=== PATIENT | female | born 1935 | race Caucasian/White ===

== ENCOUNTER → 2018-09-30 | Outpatient (CLI) | payer MEDICARE ==
[~2018-09-30] MED LIST: ASPI-906 PO; CARV3.12 PO; EST45C VG; GLIP10TA23 PO; LOSA1TAB20 PO; MAGN250T7 PO; NTR.4SL SL; OMEG1CAP24 PO; PNT40TEC PO; POTA20TA15 PO; ROSU40TA PO; SAXA5TAB PO; UBID1CAP51 PO
--- NOTE | 2018-09-30 11:32 | Diagnostic Imaging Report ---
CLINICAL INDICATION: Patient had dizzy spell on Wednesday when she could not walk and also having pains throughout her head. EXAMINATION: Axial CT scan of the brain performed without IV contrast. COMPARISON: None. FINDINGS: There is no evidence of acute cerebral infarct, intracranial hemorrhage, or gross mass effect. The brain parenchymal volume appears appropriate for patient's age. There are mild areas of low-attenuation white matter changes seen throughout both cerebral hemispheres. There is normal hernandez-white matter distinction. There is no significant midline shift or herniation. There is no evidence of hydrocephalus. The basal cisterns are unremarkable. The skull, extracranial soft tissue, and orbits are unremarkable. There is mild mucosal thickening involving the ethmoid sinus. Temporal bones show no significant abnormality. IMPRESSION: 1: Mild age-related brain parenchymal changes with no evidence of acute intracranial process. 2: There is mild ethmoid sinus disease. Dictated by: Dictated on workstation # [id number]
== END ==
LOC: RAD 10:38
PROVIDERS: ATTEND Family Medicine
DX: J32.2 Chronic ethmoidal sinusitis (principal); R42 Dizziness and giddiness
CPT/HCPCS: 70450

== ENCOUNTER 2018-12-23 05:39 | Outpatient (CLI) | payer MEDICARE ==
[~2018-12-23] VITALS: Ht 149.9 cm; Wt 88.0 kg
[2018-12-23] MEDS ORDERED: GLIP10TA13 PO (11:42)
[2018-12-23] MEDS ORDERED: OMEG-77 PO (11:42)
[2018-12-23] MEDS ORDERED: METO-370 PO (11:42)
[2018-12-23] MEDS ORDERED: LOSA50TA63 PO (11:42)
[2018-12-23] MEDS ORDERED: POTA10CA43 PO (11:42)
[2018-12-23] MEDS ORDERED: APIX2.5T PO (11:42)
[2018-12-23] MEDS ORDERED: PANT40TA3 PO (11:42)
[2018-12-23] MEDS ORDERED: ROSU40TA22 PO (11:42)
[2018-12-23] MEDS ORDERED: ASPI-999 PO (11:42)
== END 2018-12-23 11:48 ==
LOC: PREOP 05:39
PROVIDERS: ATTEND Surgery
DX: Z01.818 Encounter for other preprocedural examination (principal)

== ENCOUNTER 2018-12-27 10:13 | Day surgery (SDC) | payer MEDICARE ==
[~2018-12-27] VITALS: Ht 149.9 cm; Wt 88.0 kg
[~2018-12-27 10:13] MED LIST changes: +APIX2.5T PO; +ASPI-999 PO; +GLIP10TA13 PO; +LOSA50TA63 PO; +METO-370 PO; +OMEG-77 PO; +PANT40TA3 PO; +POTA10CA43 PO; +ROSU40TA22 PO
[2018-12-27] MEDS ORDERED: LACTATED RINGERS 1,000 ML IV ONE (10:21)
[2018-12-27] MEDS ORDERED: LACTATED RINGERS 1,000 ML IV STA (10:22)
[2018-12-27] MEDS ORDERED: proPOfol 200 MG/20 ML (DIPRIVAN) VIAL IV ONE (10:49)
[2018-12-27] MEDS ORDERED: MIDAZOLAM 2 MG/2 ML (VERSED) VIAL ONE (10:50)
[2018-12-27 11:09] VITALS: BP 127/69
--- NOTE | 2018-12-27 11:25 | Progress Note-Post Operative ---
Post-Operative Progess Note Surgeon (s)/Compressor Station Chief Engineer (s) Surgeon TERE CLARK DO Compressor Station Chief Engineer: na Pre-Operative Diagnosis hx polyps Post-Operative Diagnosis diverticulosis, descending colon polyp Procedure & Operative Findings Date of Procedure 12/27/18 Procedure Performed/Findings colonoscopy c hot bx polypectomy Anesthesia Type per mda Estimated Blood Loss Estimated blood loss (mL): none Specimens/Packing Specimens Removed colon polyp TERE CLARK DO Dec 27, 2018 11:25
--- NOTE | 2018-12-27 11:27 | Discharge Inst-Simple/Standard ---
Discharge Inst-Standard Patient Instructions/Follow Up Plan of Care/Instructions/FU: 2 weeks hedy restart Eliquis in 2 days. Activity as Tolerated: Yes Discharge Diet: Regular Diet TERE CLARK DO Dec 27, 2018 11:27
[2018-12-27 11:40] VITALS: BP 114/58
[2018-12-27 12:10] VITALS: BP 120/57
[2018-12-27 12:25] VITALS: BP 120/57
--- NOTE | 2018-12-27 14:22 | Anesthesia-General Post-Op ---
MAC Patient Condition Mental Status/LOC: Same as Preop Cardiovascular: Satisfactory Nausea/Vomiting: Absent Respiratory: Satisfactory Pain: Controlled Complications: Absent Post Op Complications Complications None Follow Up Care/Instructions Patient Instructions None needed. Anesthesiology Discharge Order Discharge Order Patient is doing well, no complaints, stable vital signs, no apparent adverse anesthesia problems. No complications reported per nursing. MALLORIE BLANC CRNA Dec 27, 2018 14:22
--- NOTE | 2018-12-27 19:17 | OPERATIVE REPORT ---
DATE OF SERVICE: 12/27/2018 PREOPERATIVE DIAGNOSIS: History of polyps. POSTOPERATIVE DIAGNOSIS: Diverticulosis and descending colon polyp. PROCEDURE: Colonoscopy with hot biopsy polypectomy. SURGEON: Tere Gordillo DO ANESTHESIA: Per MDA. ESTIMATED BLOOD LOSS: None. COMPLICATIONS: None. INDICATIONS: The patient is an 83-year-old female with history of colon polyps. She understands the risks and benefits of procedures and willing to proceed with procedure. Consent was signed in the chart. PROCEDURE IN DETAIL: The patient was taken to the endoscopy suite, placed in left lateral recumbent position. Timeout was performed. Digital rectal exam was performed. There were no palpable polyps, masses or ulcerations. The scope was inserted in the rectum and advanced all the way to the cecum with minimal difficulty. Prep was adequate. Scope was then slowly retracted back. There were no polyps, masses or ulcerations in the cecum, ascending or transverse colon. In the descending colon, there was a small polyp appearing flat lesion, which hot biopsy polypectomy was performed. Scope was then slowly retracted back. There were no polyps, masses or ulceration of the sigmoid colon. Throughout the entire colon, there was a small amount of diverticulosis present. Once in the rectum, scope was retroflexed noting no other pathology. Scope was returned to its normal position, slowly withdrawn until completely removed. The patient tolerated the procedure well without any complications. She was taken to the recovery room in stable condition. RECOMMENDATIONS: The patient will follow up in the office in two weeks to discuss pathology results. If she has any issues, she should be seen at that time. Otherwise, due to age, I do think she needs to have any further colonoscopies unless she has issues. Job ID: [id number] DocumentID: [id number] Dictated Date: 12/27/2018 11:30:04 Silica Dry Press Helper Date: 12/27/2018 19:17:05 Dictated By: TERE GORDILLO DO
== END 2018-12-27 12:25 | disposition home or self-care (01) ==
LOC: ENDO 10:13
PROVIDERS: ATTEND Surgery
DX: Z12.11 Encounter for screening for malignant neoplasm of colon (principal); K63.5 Polyp of colon; K57.30 Diverticulosis of large intestine without perforation or abscess without bleeding; I25.10 Atherosclerotic heart disease of native coronary artery without angina pectoris; I10 Essential (primary) hypertension; E11.9 Type 2 diabetes mellitus without complications; K21.9 Gastro-esophageal reflux disease without esophagitis; Z86.718 Personal history of other venous thrombosis and embolism; Z79.01 Long term (current) use of anticoagulants; Z79.82 Long term (current) use of aspirin; Z79.84 Long term (current) use of oral hypoglycemic drugs; Z79.899 Other long term (current) drug therapy
CPT/HCPCS: 82962; 88305

== ENCOUNTER 2019-02-13 05:42 | Outpatient (CLI) | payer MEDICARE ==
[~2019-02-13] VITALS: Ht 149.9 cm; Wt 82.1 kg
[2019-02-13] MEDS ORDERED: ROSU20TA31 PO (13:30)
[2019-02-13] MEDS ORDERED: CYAN500T2 PO (13:30)
[2019-02-13] MEDS ORDERED: [UNRECOGNIZED DRUG - CODE] PO (13:33)
[2019-02-13] MEDS ORDERED: DOCU100T7 PO (13:34)
== END 2019-02-13 13:47 | disposition home or self-care (01) ==
LOC: PREOP 05:42
PROVIDERS: ATTEND Otolaryngology Otolaryngology/Facial Plastic Surgery
DX: Z01.818 Encounter for other preprocedural examination (principal)

== ENCOUNTER → 2019-02-23 | Outpatient (CLI) | payer MEDICARE ==
[~2019-02-23] MED LIST changes: +CEPH-507 PO; +CYAN500T2 PO; +DOCU100T7 PO; +HYDR-3812 PO; +ROSU20TA31 PO; +[UNRECOGNIZED DRUG - CODE] PO
== END ==
LOC: CARD 10:44
PROVIDERS: ATTEND Internal Medicine Cardiovascular Disease
DX: I25.10 Atherosclerotic heart disease of native coronary artery without angina pectoris (principal); E11.9 Type 2 diabetes mellitus without complications; I10 Essential (primary) hypertension; E78.2 Mixed hyperlipidemia; I48.0 Paroxysmal atrial fibrillation
CPT/HCPCS: 93306

== ENCOUNTER 2019-03-04 11:44 | Emergency (ER) | payer MEDICARE ==
[~2019-03-04] VITALS: Ht 149.9 cm; Wt 82.1 kg
[2019-03-04] MEDS ORDERED: TRIAMCINOLONE 0.1% CR (KENALOG) 15 GM TUBE ONE (12:50)
--- NOTE | 2019-03-04 12:54 | ED Integumentary General ---
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 Pt had sutures posterior right ear removed Wednesday in Dr office and later rash developed. Stats burning and itching. Pt states tried to be seen at [facility] yesterday and they could not examine a skin graft. Source: patient Exam Limitations: no limitations History of Present Illness Date Seen by Provider: Mar 04, 2019 Time Seen by Provider: 12:47 Initial Comments This 80-year-old white female presents with redness and itching to the forehead and posterior right neck where she has been applying a topical antibiotic and Neosporin to a graft site to her forehead from a skin graft taken from posterior to the right ear. This graft was done by Dr. Lorenzana in mid January. The patient healed well but subsequently developed redness and itching suggestive of an allergic reaction to the topicals. The patient denies a headache, photophobia, stiff neck, pain or vesicular rash. Allergies and Home Medications Allergies Coded Allergies: morphine (Verified Allergy, Intermediate, 02/13/19) povidone-iodine (Verified Allergy, Intermediate, 02/13/19) thiopental (Verified Allergy, Intermediate, 02/13/19) tramadol (Verified Allergy, Intermediate, 02/13/19) metoclopramide (Unverified Adverse Reaction, Unknown, 03/04/19) Uncoded Allergies: ADHESIVE TAPE-SILICONES (Adverse Reaction, Mild, rash, 03/04/19) BETADINE SURGI-PREP (Adverse Reaction, Mild, itching, 03/04/19) SULFA (Adverse Reaction, Mild, Hives, 03/04/19) Home Medications Cephalexin 500 Mg Capsule, 500 MG PO TID Prescribed by: CATALINA OATES on 02/16/19 0856 Cyanocobalamin (Vitamin B-12) 500 Mcg Tablet, 1,000 MCG PO DAILY, (Reported) Docusate Sodium 100 Mg Tablet, 200 MG PO HS, (Reported) Glipizide 10 Mg Tablet, 10 MG PO BID, (Reported) Hydrocodone/Acetaminophen 1 Each Tablet, 1 TAB PO Q4-6HR Prescribed by: CATALINA OATES on 02/16/19 0856 Losartan Potassium 50 Mg Tablet, 50 MG PO DAILY, (Reported) Metoprolol Succinate 50 Mg Tab.er.24h, 50 MG PO BID, (Reported) [place]-3 Fatty Acids/Fish Oil 1 Each Capsule, 1 EACH PO BID, (Reported) Pantoprazole Sodium 40 Mg Tablet.dr, 40 MG PO DAILY, (Reported) Potassium Chloride 10 Meq Capsule.er, 20 MEQ PO DAILY, (Reported) Rosuvastatin Calcium 20 Mg Tablet, 20 MG PO DAILY, (Reported) Trimipramine Maleate 100 Mg Capsule, 100 MG PO Q48H, (Reported) Patient Home Medication List Home Medication List Reviewed: Yes Review of Systems Review of Systems Constitutional: No chills, No fever EENTM: other (Reisch to forehead and neck posteriorly on the right); No hearing loss Respiratory: no symptoms reported Cardiovascular: no symptoms reported Gastrointestinal: no symptoms reported Genitourinary: no symptoms reported Musculoskeletal: no symptoms reported Skin: see HPI, other (coalescing erythematous rash to the right forehead and the right neck posteriorly) Psychiatric/Neurological: No Symptoms Reported Endocrine: No Symptoms Reported Hematologic/Lymphatic: No Symptoms Reported Past Pbytfns-Gqhmzx-Welnoz Hx Past Med/Social Hx: Reviewed Nursing Past Med/Soc Hx Patient Social History Alcohol Use: Denies Use Recreational Drug Use: No Smoking Status: Never a Smoker 2nd Hand Smoke Exposure: No Recent Foreign Travel: No Contact w/Someone Who Travel: No Recent Infectious Disease Expo: No Recent Hopitalizations: No Physical Abuse: No Sexual Abuse: No Mistreated: No Fear: No Immunizations Up To Date Date of Pneumonia Vaccine: May 30, 2009 Date of Influenza Vaccine: Jun 06, 2018 Seasonal Allergies Seasonal Allergies: No Past Medical History Surgeries: Yes (Lesion head excision with skin grafting, back surgery, kidney cyst) Adenoidectomy, Coronary Stent, Gallbladder, Hysterectomy, Orthopedic, Tonsillectomy Respiratory: No Cardiac: Yes (ASHD) Atrial Fibrillation, High Cholesterol, Hypertension Neurological: No Neuropathy Sexually Transmitted Disease: No HIV/AIDS: No Genitourinary: Yes (Hematuria hx, CKD Stage 3) UTI-Chronic Gastrointestinal: Yes Gastroesophageal Reflux Musculoskeletal: Yes (Sciatica, Hx series 3 lumbar epidurals) Degenerate Disk Disease, Osteoporosis, Arthritis Endocrine: Yes Diabetes, Non-Insulin dep HEENT: Yes Cataract Loss of Vision: Bilateral Hearing Impairment: Denies Cancer: No Skin Did You Recieve Any Treatments: Yes What Type of Treatment Did You: Surgical Intervention Psychosocial: No Integumentary: Yes (skin graft) Recent Skin Changes Blood Disorders: Yes (Blood clotting disorder) Adverse Reaction/Blood Tranf: No Physical Exam Vital Signs Vital Signs - First Documented 03/04/19 11:55 Temp 98.1 Pulse 55 Resp 18 B/P (MAP) 108/91 (97) Pulse Ox 97 O2 Delivery Room Air Capillary Refill : Less Than 3 Seconds General Appearance: WD/WN, no apparent distress HEENT: other (erythematous rash to the right forehead) Neck: other (erythematous rash to the posterior aspect of the right neck) Cardiovascular: regular rate, rhythm Respiratory: lungs clear Gastrointestinal: normal bowel sounds Extremities: normal range of motion, normal inspection Neurologic/Psychiatric: no motor/sensory deficits, alert, normal mood/affect Skin: rash (to the right for in posterior right neck) Progress/Results/Core Measures Results/Orders My Orders Orders - PAGE IRVIN MD Triamcinolone 0.1% Cream 80 Gm (Kenalog (03/04/19 21:00) Vital Signs/I&O 03/04/19 11:55 Temp 98.1 Pulse 55 Resp 18 B/P (MAP) 108/91 (97) Pulse Ox 97 O2 Delivery Room Air Blood Pressure Mean: 97 Progress Progress Note : Time: 12:50 Progress Note I spoke to Dr. Lorenzana's nurse practitioner, Loly, and we agreed on a course of discontinuing the topicals and applying triamcinolone 3 times a day. I'll add Pepcid and Benadryl for the itching. I will recheck the patient here in the emergency department tomorrow to make sure that there is been interval improvement. She will follow-up with Dr. Lorenzana or Loly in the office on Wednesday. Departure Impression Primary Impression: Contact dermatitis Qualified Codes: L23.3 - Allergic contact dermatitis due to drugs in contact with skin Disposition: HOME, SELF-CARE Condition: Improved Departure-Patient Inst. Decision time for Depature: 12:54 Referrals: SANDIE LORENZANA MD, KATRINA M MD (PCP/Family) Primary Care Physician Patient Instructions: Contact Dermatitis (DC) Add. Discharge Instructions: Follow-up with Dr. Chen closely on Wednesday. Come back to emergency department tomorrow for recheck. Apply the triamcinolone 3 times a day to the rash. Pepcid and Benadryl for itching. All discharge instructions reviewed with patient and/or family. Voiced understanding. Scripts Famotidine (Acid Latin American Studies Director (FAMOTIDINE)) 20 Mg Tablet 20 MG PO BID for 7 Days, TAB Prov: PAGE IRVIN MD 03/04/19 PAGE IRVIN MD Mar 04, 2019 12:53
[2019-03-04] MEDS ORDERED: FAMO20TA3 PO (12:56)
[2019-03-04 13:31] VITALS: BP 106/86
[2019-03-04] MEDS ORDERED: TRIAMCINOLONE 0.1% CR (KENALOG) 80 GM TUBE TP SCH (21:00)
== END 2019-03-04 13:31 | disposition home or self-care (01) ==
LOC: EDUNIT# 11:44 → ER FS 11:46
DX: L25.9 Unspecified contact dermatitis, unspecified cause (principal); I12.9 Hypertensive chronic kidney disease with stage 1 through stage 4 chronic kidney disease, or unspecified chronic kidney disease; N18.3 Chronic kidney disease, stage 3 (moderate); E11.22 Type 2 diabetes mellitus with diabetic chronic kidney disease; E78.00 Pure hypercholesterolemia, unspecified; I48.91 Unspecified atrial fibrillation; I25.10 Atherosclerotic heart disease of native coronary artery without angina pectoris; K21.9 Gastro-esophageal reflux disease without esophagitis; M81.0 Age-related osteoporosis without current pathological fracture; Z87.440 Personal history of urinary (tract) infections; Z88.5 Allergy status to narcotic agent; Z88.8 Allergy status to other drugs, medicaments and biological substances; Z88.2 Allergy status to sulfonamides; Z79.84 Long term (current) use of oral hypoglycemic drugs; Z95.5 Presence of coronary angioplasty implant and graft; Z90.710 Acquired absence of both cervix and uterus; Z90.89 Acquired absence of other organs
CPT/HCPCS: 99282

== ENCOUNTER 2019-03-05 10:32 | Emergency (ER) | payer MEDICARE ==
[~2019-03-05] VITALS: Ht 149.9 cm; Wt 82.1 kg
[~2019-03-05 10:32] MED LIST changes: +FAMO20TA3 PO
--- OUTSIDE RECORDS SUMMARY | 2019-03-05 10:37 | XMS REPORT | Continuity of Care Document ---
Author Organization Unknown Address Unknown Allergies Active Description Code Type Severity Reaction Onset Reported/Identified Relationship to Patient Clinical Status Yes morphine [id number] Drug Allergy Moderate N/A 02/13/2019 Yes povidone-iodine [id number] Drug Allergy Moderate N/A 02/13/2019 Yes thiopental [id number] Drug Allergy Moderate N/A 02/13/2019 Yes tramadol [id number] Drug Allergy Moderate N/A 02/13/2019 Medications There is no data. Problems Date Dx Coded Attending Type Code Diagnosis Diagnosed By 03/27/2014 TERE CLARK DO Ot 211.3 BENIGN NEOPLASM LG BOWEL 03/27/2014 TERE CLARK DO Ot 562.10 DIVERTICULOSIS COLON (W/O MENT OF HEMORR 03/27/2014 TERE CLARK DO Ot V76.51 SCREEN MAL NEOP-COLON 09/28/2018 TERE CLARK DO Ot V72.84 EXAM PRE-OPERATIVE NOS 10/02/2018 SUAD ORTIZ, DENZEL Gomez Ot J32.2 CHRONIC ETHMOIDAL SINUSITIS 10/02/2018 DENZEL BORJAS MD Ot R42 DIZZINESS AND GIDDINESS 10/19/2018 DENZEL BORJAS MD Ot J32.2 CHRONIC ETHMOIDAL SINUSITIS 10/19/2018 DENZEL BORJAS MD Ot R42 DIZZINESS AND GIDDINESS 12/26/2018 TERE CLARK DO Ot V72.84 EXAM PRE-OPERATIVE NOS 12/26/2018 DENZEL BORJAS MD Ot J32.2 CHRONIC ETHMOIDAL SINUSITIS 12/26/2018 DENZEL BORJAS MD Ot R42 DIZZINESS AND GIDDINESS 12/26/2018 TERE CLARK DO Ot Z01.818 ENCOUNTER FOR OTHER PREPROCEDURAL EXAMIN 12/27/2018 TERE CLARK DO Ot E11.9 TYPE 2 DIABETES MELLITUS WITHOUT COMPLIC 12/27/2018 TERE CLARK DO Ot I10 ESSENTIAL (PRIMARY) HYPERTENSION 12/27/2018 TERE CLARK DO Ot I25.10 ATHSCL HEART DISEASE OF [place] CORONARY 12/27/2018 TERE CLARK DO Ot K21.9 GASTRO-ESOPHAGEAL REFLUX DISEASE WITHOUT 12/27/2018 TERE CLARK DO Ot K57.30 DVRTCLOS OF LG INT W/O PERFORATION OR AB 12/27/2018 TERE CLARK DO Ot K63.5 POLYP OF COLON 12/27/2018 TERE CLARK DO Ot Z12.11 ENCOUNTER FOR SCREENING FOR MALIGNANT NE 12/27/2018 TERE CLARK DO Ot Z79.01 USP (CURRENT) USE OF ANTICOAGULANT 12/27/2018 TERE CLARK DO Ot Z79.82 USP (CURRENT) USE OF ASPIRIN 12/27/2018 TERE CLARK DO Ot Z79.84 PATIENT TRANSITION SPECIALIST (CURRENT) USE OF ORAL HYPOGLYC 12/27/2018 TERE CLARK DO Ot Z79.899 OTHER PATIENT TRANSITION SPECIALIST (CURRENT) DRUG THERAPY 12/27/2018 TERE CLARK DO Ot Z86.718 PERSONAL HISTORY OF OTHER VENOUS THROMBO 01/02/2019 TERE CLARK DO Ot E11.9 TYPE 2 DIABETES MELLITUS WITHOUT COMPLIC 01/02/2019 TERE CLARK DO Ot I10 ESSENTIAL (PRIMARY) HYPERTENSION 01/02/2019 TERE CLARK DO Ot I25.10 ATHSCL HEART DISEASE OF [place] CORONARY 01/02/2019 TERE CLARK DO Ot K21.9 GASTRO-ESOPHAGEAL REFLUX DISEASE WITHOUT 01/02/2019 TERE CLARK DO, Ot K57.30 DVRTCLOS OF LG INT W/O PERFORATION OR AB 01/02/2019 TERE CLARK DO Ot K63.5 POLYP OF COLON 01/02/2019 TERE CLARK DO Ot Z12.11 ENCOUNTER FOR SCREENING FOR MALIGNANT NE 01/02/2019 TERE CLARK DO Ot Z79.01 PATIENT TRANSITION SPECIALIST (CURRENT) USE OF ANTICOAGULANT 01/02/2019 TERE CLARK DO Ot Z79.82 PATIENT TRANSITION SPECIALIST (CURRENT) USE OF ASPIRIN 01/02/2019 TERE CLARK DO Ot Z79.84 PATIENT TRANSITION SPECIALIST (CURRENT) USE OF ORAL HYPOGLYC 01/02/2019 TERE CLARK DO Ot Z79.899 OTHER PATIENT TRANSITION SPECIALIST (CURRENT) DRUG THERAPY 01/02/2019 TERE CLARK DO Ot Z86.718 PERSONAL HISTORY OF OTHER VENOUS THROMBO 02/14/2019 ADENIKE ORTIZ, SANDIE Lockhart Ot Z01.818 ENCOUNTER FOR OTHER PREPROCEDURAL EXAMIN Procedures There is no data. Results Test Result Range Capillary blood glucose measurement by glucometer (mass/volume) - 12/27/18 10:48 Capillary blood glucose measurement by glucometer (mass/volume) 176 mg/dL 70-110 Methicillin resistant Staphylococcus aureus (MRSA) screening culture - 02/16/19 06:35 Methicillin resistant Staphylococcus aureus (MRSA) screening culture NEG NRG Encounters ACCT No. Visit Date/Time Discharge Status Pt. Type Provider Facility Loc./Unit Complaint [id number] 02/23/2019 10:44:00 02/23/2019 23:59:59 CLS Outpatient LEONARDO RANDHAWA MD [facility] CARD CAD,HTN [id number] 02/16/2019 05:49:00 02/16/2019 11:10:00 DIS Outpatient SANDIE JEONG MD [facility] SDC RIGHT SCALP LESION [id number] 02/13/2019 05:42:00 02/13/2019 13:47:00 DIS Outpatient SANDIE JEONG MD [facility] PREOP RIGHT SCALP LESION [id number] 02/10/2019 11:31:00 02/10/2019 23:59:59 CLS Preadmit LEONARDO RANDHAWA MD [facility] CARD CAD,HTN [id number] 12/27/2018 10:13:00 12/27/2018 12:25:00 DIS Outpatient TERE CLARK DO [facility] ENDO SCREENING [id number] 12/23/2018 05:39:00 12/23/2018 11:48:00 DIS Outpatient TERE CLARK DO [facility] PREOP COLONOSCOPY [id number] 09/30/2018 10:38:00 09/30/2018 23:59:59 CLS Outpatient DENZEL BORJAS MD [facility] RAD VERTIGO [id number] 03/27/2014 12:04:00 03/27/2014 15:30:00 DIS Outpatient TERE CLARK DO [facility] SCREENING [id number] 03/21/2014 08:33:00 03/21/2014 23:59:59 CLS Outpatient TERE CLARK DO [facility] PREOP SCREENING
--- NOTE | 2019-03-05 10:45 | ED Integumentary General ---
General Stated Complaint: CHECK UP ON HEAD RASH Source: patient, family History of Present Illness Date Seen by Provider: Mar 05, 2019 Time Seen by Provider: 10:39 Initial Comments Patient returns for follow-up of a contact dermatitis to her forehead and right neck where she had a skin graft performed from her right neck to her forehead by Dr. Lorenzana. Patient had apparently developed contact dermatitis to the topicals that she was applying which are combination of an antibiotic cream and Neosporin. I di scussed the presentation yesterday with Dr. Lorenzana's nurse practitioner. We agreed on a trial of triamcinolone and the discontinuation of the Neosporin and topical antibiotic. She has done well in the interim. She was able to rest through the night and the rashes much less prominent today. Allergies and Home Medications Allergies Coded Allergies: morphine (Verified Allergy, Intermediate, 02/13/19) povidone-iodine (Verified Allergy, Intermediate, 02/13/19) thiopental (Verified Allergy, Intermediate, 02/13/19) tramadol (Verified Allergy, Intermediate, 02/13/19) metoclopramide (Unverified Adverse Reaction, Unknown, 03/04/19) Uncoded Allergies: ADHESIVE TAPE-SILICONES (Adverse Reaction, Mild, rash, 03/04/19) BETADINE SURGI-PREP (Adverse Reaction, Mild, itching, 03/04/19) SULFA (Adverse Reaction, Mild, Hives, 03/04/19) Home Medications Cephalexin 500 Mg Capsule, 500 MG PO TID Prescribed by: CATALINA OATES on 02/16/19 0856 Cyanocobalamin (Vitamin B-12) 500 Mcg Tablet, 1,000 MCG PO DAILY, (Reported) Docusate Sodium 100 Mg Tablet, 200 MG PO HS, (Reported) Famotidine 20 Mg Tablet, 20 MG PO BID Prescribed by: PAGE IRVIN MD on 03/04/19 1256 Glipizide 10 Mg Tablet, 10 MG PO BID, (Reported) Hydrocodone/Acetaminophen 1 Each Tablet, 1 TAB PO Q4-6HR Prescribed by: CATALINA OATES on 02/16/19 0856 Losartan Potassium 50 Mg Tablet, 50 MG PO DAILY, (Reported) Metoprolol Succinate 50 Mg Tab.er.24h, 50 MG PO BID, (Reported) [place]-3 Fatty Acids/Fish Oil 1 Each Capsule, 1 EACH PO BID, (Reported) Pantoprazole Sodium 40 Mg Tablet.dr, 40 MG PO DAILY, (Reported) Potassium Chloride 10 Meq Capsule.er, 20 MEQ PO DAILY, (Reported) Rosuvastatin Calcium 20 Mg Tablet, 20 MG PO DAILY, (Reported) Trimipramine Maleate 100 Mg Capsule, 100 MG PO Q48H, (Reported) Patient Home Medication List Home Medication List Reviewed: Yes Review of Systems Review of Systems Constitutional: No chills EENTM: No ear pain Respiratory: no symptoms reported; No cough Cardiovascular: no symptoms reported; No chest pain Gastrointestinal: no symptoms reported; No abdominal pain Genitourinary: no symptoms reported Musculoskeletal: no symptoms reported Skin: see HPI, rash (the erythematous rash to the right forehead and posterior aspect of the right neck her much improved today after the application of the triamcinolone.) Psychiatric/Neurological: No Symptoms Reported Endocrine: No Symptoms Reported Hematologic/Lymphatic: No Symptoms Reported Past Qlcnuic-Pybgxy-Rcbizq Hx Past Med/Social Hx: Reviewed Nursing Past Med/Soc Hx Patient Social History 2nd Hand Smoke Exposure: No Recent Hopitalizations: No Immunizations Up To Date Date of Pneumonia Vaccine: May 30, 2009 Date of Influenza Vaccine: Jun 06, 2018 Seasonal Allergies Seasonal Allergies: No Past Medical History Surgeries: Yes (Lesion head excision with skin grafting, back surgery, kidney cyst) Adenoidectomy, Coronary Stent, Gallbladder, Hysterectomy, Orthopedic, Tonsillect cesar Respiratory: No Cardiac: Yes (ASHD) Atrial Fibrillation, High Cholesterol, Hypertension Neurological: No Neuropathy Sexually Transmitted Disease: No HIV/AIDS: No Genitourinary: Yes (Hematuria hx, CKD Stage 3) UTI-Chronic Gastrointestinal: Yes Gastroesophageal Reflux Musculoskeletal: Yes (Sciatica, Hx series 3 lumbar epidurals) Degenerate Disk Disease, Osteoporosis, Arthritis Endocrine: Yes Diabetes, Non-Insulin dep HEENT: Yes Cataract Loss of Vision: Bilateral Hearing Impairment: Denies Cancer: No Skin Did You Recieve Any Treatments: Yes What Type of Treatment Did You: Surgical Intervention Psychosocial: No Integumentary: Yes (skin graft) Recent Skin Changes Blood Disorders: Yes (Blood clotting disorder) Adverse Reaction/Blood Tranf: No Physical Exam Vital Signs Capillary Refill : General Appearance: WD/WN, no apparent distress Neck: normal inspection Cardiovascular: regular rate, rhythm Respiratory: no respiratory distress Extremities: normal range of motion, normal inspection Neurologic/Psychiatric: no motor/sensory deficits, alert, normal mood/affect Skin: other (rash to the forehead and neck are improved today.) Skin Problem Location: scalp, neck Progress/Results/Core Measures Progress Progress Note : Time: 10:43 Progress Note I asked the patient and has been in the follow-up with Dr. Lorenzana and/or his associates tomorrow. I recommend they continue with triamcinolone, Pepcid, and Benadryl until tomorrow. I invited them to return to the emergency department if any further problems or questions. Departure Impression Primary Impression: Contact dermatitis Qualified Codes: L23.3 - Allergic contact dermatitis due to drugs in contact with skin Disposition: 01 HOME, SELF-CARE Condition: Improved Departure-Patient Inst. Decision time for Depature: 10:44 Referrals: SANDIE LORENZANA MD, KATRINA M MD (PCP/Family) Primary Care Physician Patient Instructions: Contact Dermatitis (DC) Add. Discharge Instructions: Continue with the triamcinolone to the rash. Utilize the Pepcid and Benadryl as prescribed for itching. Follow-up with Dr. Lorenzana tomorrow. Return if any problems. PAGE IRVIN MD Mar 05, 2019 10:45
[2019-03-05 10:48] VITALS: BP 155/75
== END 2019-03-05 10:48 | disposition home or self-care (01) ==
LOC: EDUNIT# 10:32 → ER FS 10:33
DX: L25.9 Unspecified contact dermatitis, unspecified cause (principal); I25.10 Atherosclerotic heart disease of native coronary artery without angina pectoris; I12.9 Hypertensive chronic kidney disease with stage 1 through stage 4 chronic kidney disease, or unspecified chronic kidney disease; N18.3 Chronic kidney disease, stage 3 (moderate); E11.22 Type 2 diabetes mellitus with diabetic chronic kidney disease; E78.00 Pure hypercholesterolemia, unspecified; I48.91 Unspecified atrial fibrillation; E11.40 Type 2 diabetes mellitus with diabetic neuropathy, unspecified; K21.9 Gastro-esophageal reflux disease without esophagitis; M81.0 Age-related osteoporosis without current pathological fracture; Z87.440 Personal history of urinary (tract) infections; Z95.5 Presence of coronary angioplasty implant and graft; Z79.84 Long term (current) use of oral hypoglycemic drugs; Z88.5 Allergy status to narcotic agent; Z88.2 Allergy status to sulfonamides; Z88.8 Allergy status to other drugs, medicaments and biological substances; Z91.041 Radiographic dye allergy status; Z90.89 Acquired absence of other organs; Z90.710 Acquired absence of both cervix and uterus

== ENCOUNTER → 2019-03-29 | Outpatient (CLI) | payer MEDICARE ==
[~2019-03-29] VITALS: Ht 149.9 cm; Wt 82.1 kg
[~2019-03-29] MED LIST changes: +CATHETER FLUSH 10 ML SYR IV PRN; +REGADENOSON 0.4 MG/5 ML SYR (LEXISCAN) IV ONE
[2019-03-29 12:49] VITALS: BP 121/64
[2019-03-29 12:54] VITALS: BP 131/73
--- NOTE | 2019-03-30 12:49 | STRESS TEST ---
DATE OF SERVICE: 03/29/2019 LEXISCAN MYOVIEW STRESS TEST REFERRING PHYSICIAN: Dr. Jeanette Da Silva. Baseline heart rate is 87, baseline blood pressure 152/65. Baseline EKG is sinus rhythm with no ischemic changes. In summary, the patient was injected with 10.87 mCi of technetium-99 Myoview and the resting images were obtained. Then, the patient received 0.4 mg of Lexiscan followed by 30.8 mCi of technetium-99 Myoview. Throughout the test, there were no EKG changes. The resting and stress images were reviewed and compared in the short axis, horizontal long axis, and vertical long axis views. Review of the images showed no significant ischemia or infarction. SSS is 4, SDS 2, TID value is 1.05. On the gated images, the left ventricle appeared to be small in size with normal contractility. Calculated ejection fraction 94%. CONCLUSION: 1. The patient tolerated Lexiscan well. 2. No significant ischemia or infarction on SPECT images. 3. Small left ventricular size with normal contractility. Calculated ejection fraction 94%, I believe it is an overestimation due to the small left ventricular size. Job ID: [id number] DocumentID: [id number] Dictated Date: 03/30/2019 08:49:49 Pumper Gauger Date: 03/30/2019 12:47:41 Dictated By: LEONARDO RANDHAWA MD
== END ==
LOC: CARD 11:06
PROVIDERS: ATTEND Internal Medicine Cardiovascular Disease
DX: I11.9 Hypertensive heart disease without heart failure (principal); I25.10 Atherosclerotic heart disease of native coronary artery without angina pectoris; E11.9 Type 2 diabetes mellitus without complications; E78.2 Mixed hyperlipidemia; I48.0 Paroxysmal atrial fibrillation
CPT/HCPCS: 78452; 93017

== ENCOUNTER → 2019-06-07 | Day surgery (SDC) | payer MEDICARE ==
[~2019-06-07] VITALS: Ht 152.4 cm; Wt 82.0 kg
[~2019-06-07] MED LIST changes: -CATHETER FLUSH 10 ML SYR IV PRN; -CYAN500T2 PO; +CYAN500T62 PO; +LIDOCAINE 1% INJ 20 ML 20 ML VIAL ONE; -REGADENOSON 0.4 MG/5 ML SYR (LEXISCAN) IV ONE; -ROSU20TA31 PO; +ROSU20TA32 PO; -ROSU40TA22 PO; +ROSU40TA23 PO
[2019-06-07 13:00] VITALS: BP 142/64
--- NOTE | 2019-06-07 14:07 | Implantation of Loop Monitor ---
Implant of Loop Monitior IMPLANTATION OF LOOP MONITOR REPORT DATE OF PROCEDURE: 06/07/19 PREOP DIAGNOSIS: paroxysmal atrial fibrillation POSTOP DIAGNOSIS: paroxysmal atrial fibrillation PROCEDURE DETAILS: The patient is a 83 female with history of paroxysmal atrial fibrillation requiring long-term surveillance. Therefore implantable loop recorder was discussed and agreed with the patient. Informed consent was taken. All risks and complications were discussed at length. The patient was draped and prepped in the usual sterile fashion. Local anesthesia was lidocaine, which was given in the substernal area close to the 4th intercostal space. Loop monitor [employer] serial number [id number] was implanted according to the protocol. Steri-Strips were placed at the end of the procedure. There were no complications and the patient tolerated the procedure well. The device was interrogated with a voltage of. ANESTHESIA: Local anesthesia with lidocaine. COMPLICATIONS: None CONTRAST/FLUOROSCOPY: None CONCLUSION: Successful implantation of loop recorder with no complications FINAL DIAGNOSIS: Paroxysmal atrial fibrillation Palpitation Hypertension Hyperlipidemia LEONARDO RANDHAWA MD Jun 07, 2019 14:07
== END | disposition home or self-care (01) ==
LOC: CATH 12:43
PROVIDERS: ATTEND Internal Medicine Cardiovascular Disease
DX: I48.0 Paroxysmal atrial fibrillation (principal); R00.2 Palpitations; I11.9 Hypertensive heart disease without heart failure; E78.2 Mixed hyperlipidemia; I25.10 Atherosclerotic heart disease of native coronary artery without angina pectoris; E11.9 Type 2 diabetes mellitus without complications; M81.0 Age-related osteoporosis without current pathological fracture; M19.91 Primary osteoarthritis, unspecified site; I08.3 Combined rheumatic disorders of mitral, aortic and tricuspid valves; I65.23 Occlusion and stenosis of bilateral carotid arteries; R60.9 Edema, unspecified; Z88.5 Allergy status to narcotic agent; Z88.2 Allergy status to sulfonamides; Z79.01 Long term (current) use of anticoagulants; Z79.82 Long term (current) use of aspirin; Z79.84 Long term (current) use of oral hypoglycemic drugs; Z79.899 Other long term (current) drug therapy
CPT/HCPCS: 33285

== ENCOUNTER 2019-07-16 12:53 | Inpatient (IN) | payer MEDICARE ==
[~2019-07-16] VITALS: Ht 152.4 cm; Wt 85.3 kg
[~2019-07-16 12:53] MED LIST changes: -LIDOCAINE 1% INJ 20 ML 20 ML VIAL ONE
[2019-07-16] MEDS ORDERED: NS IV 1000 ML 1,000 ML IV STA (13:28)
[2019-07-16] MEDS ORDERED: DILTIAZEM 25 MG/5 ML INJ (CARDIZEM) VIAL IVP ONE (13:30)
[2019-07-16] MEDS ORDERED: ONDANSETRON 4 MG/2 ML (SDV) Z0FRAN IVP ONE (13:30)
[2019-07-16] MEDS ORDERED: ACETAMINOPHEN 325 MG TABLET PO ONE (13:30)
[2019-07-16] MEDS ORDERED: FAMOTIDINE 20MG/2ML IV (PEPCID) IVP ONE (13:30)
[2019-07-16 13:58] LABS: INR 1.3 (0.8-1.4); PROTHROMBIN TIME PATIENT 16.8 SEC (12.2-14.7)
[2019-07-16 13:59] LABS: BASOPHILS % (AUTO) 0 % (0-10); EOSINOPHILS % (AUTO) 2 % (0-10); HEMATOCRIT 45 % (35-52); HEMOGLOBIN 14.6 G/DL (11.5-16.0); LYMPHOCYTES % (AUTO) 8 % (12-44); MEAN CORPUSCULAR HEMOGLOBIN 29 PG (25-34); MEAN CORPUSCULAR HGB CONC 33 G/DL (32-36); MEAN CORPUSCULAR VOLUME 88 FL (80-99); MEAN PLATELET VOLUME 10.5 FL (7.4-10.4); MONOCYTES % (AUTO) 4 % (0-12); NEUTROPHILS % (AUTO) 86 % (42-75); PLATELET COUNT 208 10^3/uL (130-400); RED CELL DISTRIBUTION WIDTH 12.5 % (10.0-14.5); WHITE BLOOD COUNT 8.3 10^3/uL (4.3-11.0)
[2019-07-16 14:00] LABS: EOSINOPHILS # (AUTO) 0.2 10^3/uL (0.0-0.3); LYMPHOCYTES # (AUTO) 0.6 X 10^3 (1.0-4.0); MONOCYTES # (AUTO) 0.4 X 10^3 (0.0-1.0); NEUTROPHILS # (AUTO) 7.1 X 10^3 (1.8-7.8)
--- NOTE | 2019-07-16 14:06 | ED Abdominal Pain ---
General Chief Complaint: Abdominal/GI Problems Stated Complaint: COUGH,VOMITING History of Present Illness Date Seen by Provider: Jul 16, 2019 Time Seen by Provider: 13:00 Initial Comments The patient is a 83-year-old female with a history of hypertension, hyperlipidemia, paroxysmal atrial fibrillation on Xarelto. She presents with concern for acute onset of 4 episodes of nonbloody vomiting with associated mild epigastric discomfort, all with onset this morning upon awakening from sleep. Associated mild fatigue. Symptoms occurred in the setting of rhinorrhea, nasal congestion and mild dry cough over the last 1-2 weeks. Patient is noted to have a rapid heart rate upon arrival to the emergency department and stat EKG reveals atrial fibrillation with rapid ventricular response with a rate of 140. Patient is alert and oriented 4 and pleasantly and appropriately interactive and in no significant distress upon initial evaluation in the emergency department. Blood pressure is appropriate. She specifically denies fevers, hematemesis, hematochezia, melena, productive cough, shortness of breath, chest pain of any kind, flank pain, neck pain, dysuria or hematuria, changes in bowel habits prior to this morning when she noted 3 mildly loose stools. She denies recent unusual foods, unusual travel, sick contacts with similar symptoms, recent antibiotic use. Allergies and Home Medications Allergies Coded Allergies: morphine (Verified Allergy, Intermediate, 02/13/19) povidone-iodine (Verified Allergy, Intermediate, 02/13/19) thiopental (Verified Allergy, Intermediate, 02/13/19) tramadol (Verified Allergy, Intermediate, 02/13/19) metoclopramide (Unverified Adverse Reaction, Unknown, 03/04/19) Uncoded Allergies: ADHESIVE TAPE-SILICONES (Adverse Reaction, Mild, rash, 03/04/19) BETADINE SURGI-PREP (Adverse Reaction, Mild, itching, 03/04/19) SULFA (Adverse Reaction, Mild, Hives, 03/04/19) Home Medications Cephalexin 500 Mg Capsule, 500 MG PO TID Prescribed by: CATALINA OATES on 02/16/19 0833 Cyanocobalamin (Vitamin B-12) 500 Mcg Tablet, 1,000 MCG PO DAILY, (Reported) Docusate Sodium 100 Mg Tablet, 200 MG PO HS, (Reported) Famotidine 20 Mg Tablet, 20 MG PO BID Prescribed by: PAGE IRVIN MD on 03/04/19 1256 Glipizide 10 Mg Tablet, 10 MG PO BID, (Reported) Hydrocodone/Acetaminophen 1 Each Tablet, 1 TAB PO Q4-6HR Prescribed by: CATALINA OATES on 02/16/19 0856 Losartan Potassium 50 Mg Tablet, 50 MG PO DAILY, (Reported) Metoprolol Succinate 50 Mg Tab.er.24h, 50 MG PO BID, (Reported) [place]-3 Fatty Acids/Fish Oil 1 Each Capsule, 1 EACH PO BID, (Reported) Pantoprazole Sodium 40 Mg Tablet.dr, 40 MG PO DAILY, (Reported) Potassium Chloride 10 Meq Capsule.er, 20 MEQ PO DAILY, (Reported) Rosuvastatin Calcium 20 Mg Tablet, 20 MG PO DAILY, (Reported) Trimipramine Maleate 100 Mg Capsule, 100 MG PO Q48H, (Reported) Patient Home Medication List Home Medication List Reviewed: Yes Review of Systems Review of Systems Constitutional: see HPI All Other Systems Reviewed Negative Unless Noted: Yes (Negative excepted noted.) Past Sylbdpu-Ombsaq-Tkwxgm Hx Past Med/Social Hx: Reviewed Nursing Past Med/Soc Hx Patient Social History 2nd Hand Smoke Exposure: No Recent Hopitalizations: No Immunizations Up To Date Date of Pneumonia Vaccine: May 30, 2009 Date of Influenza Vaccine: Jun 06, 2018 Seasonal Allergies Seasonal Allergies: No Past Medical History Surgeries: Yes (Lesion head excision with skin grafting, back surgery, kidney cyst) Adenoidectomy, Coronary Stent, Gallbladder, Hysterectomy, Orthopedic, Tonsillectomy Respiratory: No Cardiac: Yes (ASHD) Atrial Fibrillation, High Cholesterol, Hypertension Neurological: No Neuropathy Sexually Transmitted Disease: No HIV/AIDS: No Genitourinary: Yes (Hematuria hx, CKD Stage 3) UTI-Chronic Gastrointestinal: Yes Gastroesophageal Reflux Musculoskeletal: Yes (Sciatica, Hx series 3 lumbar epidurals) Degenerate Disk Disease, Osteoporosis, Arthritis Endocrine: Yes Diabetes, Non-Insulin dep HEENT: Yes Cataract Loss of Vision: Bilateral Hearing Impairment: Denies Cancer: No Skin Did You Recieve Any Treatments: Yes What Type of Treatment Did You: Surgical Intervention Psychosocial: No Integumentary: Yes (skin graft) Recent Skin Changes Blood Disorders: Yes (Blood clotting disorder) Adverse Reaction/Blood Tranf: No Family Medical History Reviewed Nursing Family Hx Physical Exam Vital Signs Vital Signs - First Documented 07/16/19 13:05 Temp 36.1 Pulse 149 Resp 20 B/P (MAP) 156/68 (97) Pulse Ox 99 O2 Delivery Room Air Capillary Refill : Height/Weight/BMI Height: 4'11.00" Weight: 181lbs. 0.0oz. 82.252180an; 35.30 BMI Method:Stated General Appearance: no apparent distress Exam Comments This is an elderly female appearing nontoxic and in no acute distress. Head is normocephalic and atraumatic. Neck is supple and nontender. Oropharynx i s moist. Lungs are clear to auscultation in all stations. There is a normal S1 and S2 without rubs or gallops and capillary refill is appropriate, less than 2 seconds globally. There is a tachycardic, irregularly irregular rhythm. Abdomen is soft and nondistended aside from mild epigastric tenderness to palpation without rebound or guarding. Skin is warm and dry without cyanosis, clubbing or edema. Psychiatrically, the patient given strict appropriate mood and affect and is alert. Focused Exam Lactate Level 07/16/19 14:32: Lactic Acid Level 2.13*H Lactic Acid Level Laboratory Tests Test 07/16/19 14:32 Lactic Acid Level 2.13 MMOL/L (0.50-2.00) *H Progress/Results/Core Measures Results/Orders Lab Results Laboratory Tests Test 07/16/19 12:58 07/16/19 13:15 07/16/19 14:32 Range/Units White Blood Count 8.3 4.3-11.0 10^3/uL Red Blood Count 5.06 4.35-5.85 10^6/uL Hemoglobin 14.6 11.5-16.0 G/DL Hematocrit 45 35-52 % Mean Corpuscular Volume 88 80-99 FL Mean Corpuscular Hemoglobin 29 25-34 PG Mean Corpuscular Hemoglobin Concent 33 32-36 G/DL Red Cell Distribution Width 12.5 10.0-14.5 % Platelet Count 208 130-400 10^3/uL Mean Platelet Volume 10.5 H 7.4-10.4 FL Neutrophils (%) (Auto) 86 H 42-75 % Lymphocytes (%) (Auto) 8 L 12-44 % Monocytes (%) (Auto) 4 0-12 % Eosinophils (%) (Auto) 2 0-10 % Basophils (%) (Auto) 0 0-10 % Neutrophils # (Auto) 7.1 1.8-7.8 X 10^3 Lymphocytes # (Auto) 0.6 L 1.0-4.0 X 10^3 Monocytes # (Auto) 0.4 0.0-1.0 X 10^3 Eosinophils # (Auto) 0.2 0.0-0.3 10^3/uL Basophils # (Auto) 0.0 0.0-0.1 10^3/uL Neutrophils % (Manual) 80 % Lymphocytes % (Manual) 5 % Monocytes % (Manual) 4 % Eosinophils % (Manual) 3 % Band Neutrophils 8 % Blood Morphology Comment NORMAL Prothrombin Time 16.8 H 12.2-14.7 SEC INR Comment 1.3 0.8-1.4 Activated Partial Thromboplast Time 32 24-35 SEC Sodium Level 140 135-145 MMOL/L Potassium Level 4.4 3.6-5.0 MMOL/L Chloride Level 103 98-107 MMOL/L Carbon Dioxide Level 20 L 21-32 MMOL/L Anion Gap 17 H 5-14 MMOL/L Blood Urea Nitrogen 18 7-18 MG/DL Creatinine 1.25 0.60-1.30 MG/DL Estimat Glomerular Filtration Rate 41 BUN/Creatinine Ratio 14 Glucose Level 227 H 70-105 MG/DL Calcium Level 9.2 8.5-10.1 MG/DL Corrected Calcium 9.2 8.5-10.1 MG/DL Total Bilirubin 0.6 0.1-1.0 MG/DL Aspartate Amino Transf (AST/SGOT) 27 5-34 U/L Alanine Aminotransferase (ALT/SGPT) 21 0-55 U/L Alkaline Phosphatase 57 40-136 U/L Troponin I < 0.30 <0.30 NG/ML Pro-B-Type Natriuretic Peptide 405.2 H <75.0 PG/ML Total Protein 7.0 6.4-8.2 GM/DL Albumin 4.0 3.2-4.5 GM/DL Lipase 61 8-78 U/L Lactic Acid Level 2.13 *H 0.50-2.00 MMOL/L My Orders Orders - ALIE AWAN MD Cbc With Automated Diff (07/16/19 13:28) Comprehensive Metabolic Panel (07/16/19 13:28) Troponin I Fs (07/16/19 13:28) Protime With Inr (07/16/19 13:28) Partial Thromboplastin Time (07/16/19 13:28) Probnp Fs (07/16/19 13:28) Chest 1 View Ap/Pa Only (07/16/19 13:28) Ct Abdomen/Pelvis W (07/16/19 13:28) Lactic Acid Analyzer (07/16/19 13:28) Lipase (07/16/19 13:28) Ondansetron Injection (Zofran Injectio (07/16/19 13:30) Ns Iv 1000 Ml (Sodium Chloride 0.9%) (07/16/19 13:28) Ed Iv/Invasive Line Start (07/16/19 13:28) Famotidine Injection (Pepcid Injection) (07/16/19 13:30) Acetaminophen Tablet/Caplet (Tylenol T (07/16/19 13:30) Diltiazem Injection (Cardizem Injection) (07/16/19 13:30) Manual Differential (07/16/19 13:15) Ua Culture If Indicated (07/16/19 14:26) Ns (Ivpb) (Sodium C... W/Diltiazem Iv Fo (07/16/19 15:00) Blood Culture (07/16/19 15:05) Piperacillin/Tazobactam (Bulk) (Zosyn In (07/16/19 15:15) Iohexol Injection (Omnipaque 350 Mg/Ml 1 (07/16/19 15:15) Received Contrast (Hold Metformin- Contr (07/16/19 15:15) Ns (Ivpb) (Sodium Chloride 0.9% Ivpb Bag (07/16/19 15:15) Blood Culture (07/16/19 15:32) Medications Given in ED Current Medications Medications Dose Ordered Sig/Denice Route Start Time Stop Time Status Last Admin Dose Admin Acetaminophen 975 mg ONCE ONCE PO 07/16/19 13:30 07/16/19 13:31 DC 07/16/19 14:11 975 MG Diltiazem HCl 20 mg ONCE ONCE IVP 07/16/19 13:30 07/16/19 13:31 DC 07/16/19 14:10 20 MG Famotidine 20 mg ONCE ONCE IVP 07/16/19 13:30 07/16/19 13:31 DC 07/16/19 14:10 20 MG Iohexol 100 ml ONCE ONCE IV 07/16/19 15:15 07/16/19 15:16 DC 07/16/19 15:12 100 ML Ondansetron HCl 4 mg ONCE ONCE IVP 07/16/19 13:30 07/16/19 13:31 DC 07/16/19 14:11 4 MG Sodium Chloride 100 ml ONCE ONCE IV 07/16/19 15:15 07/16/19 15:16 DC 07/16/19 15:12 80 ML Vital Signs/I&O 07/16/19 13:05 Temp 36.1 Pulse 149 Resp 20 B/P (MAP) 156/68 (97) Pulse Ox 99 O2 Delivery Room Air Progress Progress Note : Time: 14:05 Progress Note Elderly female with a history of atrial fibrillation presents in atrial fibrillation with rapid ventricular response. Reason for presentation was vomiting with some diarrhea beginning early this morning, potentially unrelated to the patient's A. fib. We will check labs and chest x-ray and CT of the abdomen and pelvis with IV contrast given epigastric pain although feel symptoms most likely related to gastritis. We'll give some Cardizem for rate control as well as a fluid bolus and medication for nausea. We will then reevaluate. Patient will be an admission to the hospital. Update 1548: Rate is well-controlled on Cardizem drip and patient is feeling somewhat better upon reassessment. Vital signs otherwise appropriate upon reassessment. Workup is complete and is remarkable for mildly elevated blood lactate which may simply be due to volume depletion in the setting of vomiting and diarrhea today. However, we have drawn blood cultures and we'll give a dose of empiric Zosyn although overall impression at this time is of a gastroenteritis with superimposed atrial fibrillation with RVR. Case is discussed with Dr. Veloz who accepts the patient for ICU admission at [place]. We will proceed with transfer at this time. Comment Atrial fibrillation with rapid ventricular response, rate 140, no acute ST elevation or depression, EP interpretation. Diagnostic Imaging Diagonstic Imaging: CT Comments CT ABDOMEN/PELVIS W PROCEDURE: CT abdomen and pelvis with contrast. TECHNIQUE: Multiple contiguous axial images were obtained through the abdomen and pelvis after administration of intravenous contrast. Auto Exposure Controls were utilized during the CT exam to meet ALARA standards for radiation dose reduction. INDICATION: Abdominal pain with nausea and diarrhea. COMPARISON: No prior studies are available for comparison. FINDINGS: The lung bases are clear. No focal liver mass is detected. Gallbladder is surgically absent. No biliary ductal dilatation is seen. The pancreas and spleen are unremarkable. No adrenal mass is detected. Kidneys are without calculi or hydronephrosis. Cortical low densities are noted, too small to characterize but most likely cysts. The aorta is nonaneurysmal. There are some nonspecific fluid-filled small and large bowel loops. No significant bowel distention or transition point is seen to suggest obstruction. Findings may be owing to enteritis. There is diverticulosis involving the sigmoid colon but no evidence of acute diverticulitis. No free fluid or fluid collection is identified. The bladder is unremarkable. No abdominal or pelvic lymphadenopathy is seen. Postop changes of posterior instrumented fusion in the lumbar spine are noted. IMPRESSION: 1. Nonspecific fluid-filled bowel loops throughout the abdomen, perhaps on the basis of enteritis. No bowel obstruction is seen. No abscess formation or free air is detected. 2. Uncomplicated diverticulosis. Dictated by: Dictated on workstation # [id number] XR chest: no acute cardiopulmonary process, EP and rad interp Critical Care Note Critical Care Total Time (minutes) 38 Departure Impression Primary Impression: Atrial fibrillation with rapid ventricular response Additional Impressions: Vomiting Qualified Codes: R11.2 - Nausea with vomiting, unspecified Acute epigastric pain Lactic acid acidosis Disposition: ADMITTED INPATIENT Condition: Stable Departure-Patient Inst. Referrals: DENZEL BORJAS MD (PCP/Family) Primary Care Physician ALIE AWAN MD Jul 16, 2019 14:06 POS
[2019-07-16 14:11] LABS: CARBON DIOXIDE 20 MMOL/L (21-32); CHLORIDE 103 MMOL/L (98-107); POTASSIUM 4.4 MMOL/L (3.6-5.0); SODIUM 140 MMOL/L (135-145)
[2019-07-16 14:12] LABS: ALANINE AMINOTRANSFERASE 21 U/L (0-55); ALKALINE PHOSPHATASE 57 U/L (40-136); BILIRUBIN,TOTAL 0.6 MG/DL (0.1-1.0); BUN/CREATININE RATIO 14; CALCIUM 9.2 MG/DL (8.5-10.1); CREATININE SERUM 1.25 MG/DL (0.60-1.30); GFR ESTIMATED 41; GLUCOSE 227 MG/DL (70-105); LIPASE 61 U/L (8-78)
[2019-07-16 14:13] LABS: BAND NEUTROPHILS 8 %; EOSINOPHILS % (MANUAL) 3 %; LYMPHOCYTES % (MANUAL) 5 %; MONOCYTES % (MANUAL) 4 %; NEUTROPHILS % (MANUAL) 80 %; RBC MORPH NORMAL
[2019-07-16] MEDS ORDERED: DILTIAZEM IV FOR DRIP 125 MG in NS (IVPB) 100 ML IV SCH (15:00)
[2019-07-16] MEDS ORDERED: PIPERACILLIN/TAZOBACTAM (BULK) 4.5 GM in NS (IVPB) 100 ML IV ONE (15:15)
[2019-07-16] MEDS ORDERED: NS 100 ML (IVPB) BAG IV ONE (15:15)
[2019-07-16] MEDS ORDERED: HOLD METFORMIN - RECEIVED CONTRAST 20 ML VIAL IV SCH (15:15)
[2019-07-16] MEDS ORDERED: IOHEXOL 350 MG/ML 100 ML (OMNIPAQUE 350) VIAL IV ONE (15:15)
--- NOTE | 2019-07-16 15:19 | Diagnostic Imaging Report ---
INDICATION: Midabdominal pain. TIME OF EXAM: 2:39 p.m. COMPARISON: Comparison is made with the PET/CT study from 03/28/2009. FINDINGS: A nodular density in the [id number] right lung is noted and correlates to a nodule noted on PET in 2008, consistent with benign nodule. No infiltrates are seen. There is no effusion or pneumothorax. Pulmonary vascularity is normal. IMPRESSION: No acute cardiopulmonary process is detected. Dictated by: Dictated on workstation # [id number]
--- NOTE | 2019-07-16 15:31 | Diagnostic Imaging Report ---
PROCEDURE: CT abdomen and pelvis with contrast. TECHNIQUE: Multiple contiguous axial images were obtained through the abdomen and pelvis after administration of intravenous contrast. Auto Exposure Controls were utilized during the CT exam to meet ALARA standards for radiation dose reduction. INDICATION: Abdominal pain with nausea and diarrhea. COMPARISON: No prior studies are available for comparison. FINDINGS: The lung bases are clear. No focal liver mass is detected. Gallbladder is surgically absent. No biliary ductal dilatation is seen. The pancreas and spleen are unremarkable. No adrenal mass is detected. Kidneys are without calculi or hydronephrosis. Cortical low densities are noted, too small to characterize but most likely cysts. The aorta is nonaneurysmal. There are some nonspecific fluid-filled small and large bowel loops. No significant bowel distention or transition point is seen to suggest obstruction. Findings may be owing to enteritis. There is diverticulosis involving the sigmoid colon but no evidence of acute diverticulitis. No free fluid or fluid collection is identified. The bladder is unremarkable. No abdominal or pelvic lymphadenopathy is seen. Postop changes of posterior instrumented fusion in the lumbar spine are noted. IMPRESSION: 1. Nonspecific fluid-filled bowel loops throughout the abdomen, perhaps on the basis of enteritis. No bowel obstruction is seen. No abscess formation or free air is detected. 2. Uncomplicated diverticulosis. Dictated by: Dictated on workstation # [id number]
[2019-07-16] MEDS ORDERED: PIPERACILLIN/TAZO 4.5 GM VIAL (ZOSYN) IV ONE (16:18)
[2019-07-16 16:58] LABS: CLARITY,URINE CLEAR; COLOR,URINE YELLOW
[2019-07-16 16:59] LABS: BACTERIA,URINE NEGATIVE /HPF; BILIRUBIN,URINE NEGATIVE (NEGATIVE); GLUCOSE, URINE (UA) NEGATIVE (NEGATIVE); KETONES,URINE NEGATIVE (NEGATIVE); LEUKOCYTE ESTERASE ,URINE TRACE (NEGATIVE); NITRITE,URINE NEGATIVE (NEGATIVE); PROTEIN,URINE TRACE (NEGATIVE)
[2019-07-16 18:45] VITALS: BP 116/66
[2019-07-16] MEDS ORDERED: NS IV 1000 ML 1,000 ML ONE (19:27)
[2019-07-16 20:02] VITALS: BP 109/54
[2019-07-16] MEDS ORDERED: ACETAMINOPHEN 325 MG TABLET PO PRN (20:45)
[2019-07-16] MEDS ORDERED: ONDANSETRON 4 MG (ZOFRAN) ORAL DISSOLVE TAB PO PRN (20:45)
[2019-07-16 21:00] VITALS: BP 111/45
[2019-07-16 22:00] VITALS: BP 143/66
[2019-07-16] MEDS: NS IV 1000 ML 1,000 ML IV SCH (22:41)
[2019-07-16 23:00] VITALS: BP 108/48
[2019-07-17] VITALS (12 sets, daily range): BP systolic 91–163; BP diastolic 42–83
[2019-07-17 02:27] LABS: BASOPHILS % (AUTO) 0 % (0-10); EOSINOPHILS # (AUTO) 0.1 10^3/uL (0.0-0.3); EOSINOPHILS % (AUTO) 1 % (0-10); HEMATOCRIT 39 % (35-52); HEMOGLOBIN 13.5 G/DL (11.5-16.0); LYMPHOCYTES # (AUTO) 0.5 X 10^3 (1.0-4.0); LYMPHOCYTES % (AUTO) 8 % (12-44); MEAN CORPUSCULAR HEMOGLOBIN 29 PG (25-34); MEAN CORPUSCULAR HGB CONC 34 G/DL (32-36); MEAN CORPUSCULAR VOLUME 86 FL (80-99); MEAN PLATELET VOLUME 10.6 FL (7.4-10.4); MONOCYTES # (AUTO) 0.4 X 10^3 (0.0-1.0); MONOCYTES % (AUTO) 7 % (0-12); NEUTROPHILS # (AUTO) 4.9 X 10^3 (1.8-7.8); NEUTROPHILS % (AUTO) 84 % (42-75); PLATELET COUNT 182 10^3/uL (130-400); RED CELL DISTRIBUTION WIDTH 13.1 % (10.0-14.5); WHITE BLOOD COUNT 5.8 10^3/uL (4.3-11.0)
[2019-07-17 02:40] LABS: CALCIUM 8.4 MG/DL (8.5-10.1); CREATININE SERUM 1.18 MG/DL (0.60-1.30); MAGNESIUM 1.5 MG/DL (1.6-2.4); PHOSPHORUS 3.1 MG/DL (2.3-4.7); POTASSIUM 3.8 MMOL/L (3.6-5.0)
[2019-07-17] MEDS: POTASSIUM CL 10MEQ/50ML IVPB 50 ML IV SCH (03:46)
[2019-07-17] MEDS: KCL 20 MEQ TAB (K-DUR) PO SCH (03:46)
[2019-07-17] MEDS: MAGNESIUM 1 GM/100 ML IVPB 100 ML IV SCH ×3 (03:46→04:52)
--- NOTE | 2019-07-17 07:04 | Diagnostic Imaging Report ---
EXAMINATION: Chest 1 view HISTORY: Shortness of breath FINDINGS: Comparison is 07/16/2019. Loop recorder projects over the heart. The lungs are clear. No edema. No pneumonia. No pleural effusion. No pneumothorax. Heart is normal in size. IMPRESSION: 1. Clear lungs. Dictated by: Dictated on workstation # [id number]
--- NOTE | 2019-07-17 07:25 | Consultation-Cardiology ---
HPI-Cardiology Cardiology Consultation Date of Consultation 07/17/19 Date of Admission Time Seen by Provider: 07:19 Indication: Chest pain, palpitation HPI 83-year-old lady with history of coronary artery disease, paroxysmal atrial fibrillation, hypertension hyperlipidemia, has been having abdominal pain, nausea and vomiting and diarrhea. Persisted until yesterday when she came to the emergency room when she started to have palpitation chest pain, felt her heart racing and had some tightness all over her chest. In the emergency room she was noted to be in atrial fibrillation with rapid ventricular response, started on Cardizem drip with achieving adequate heart rate controlled. Converted overnight to sinus rhythm. Currently feeling better. Denied any active pain. No palpitation. Reporting improvement in her abdominal pain. Home Medications & Allergies Allergies: Coded Allergies: morphine (Verified Allergy, Intermediate, 02/13/19) povidone-iodine (Verified Allergy, Intermediate, 02/13/19) thiopental (Verified Allergy, Intermediate, 02/13/19) tramadol (Verified Allergy, Intermediate, 02/13/19) metoclopramide (Unverified Adverse Reaction, Unknown, 03/04/19) Uncoded Allergies: ADHESIVE TAPE-SILICONES (Adverse Reaction, Mild, rash, 03/04/19) BETADINE SURGI-PREP (Adverse Reaction, Mild, itching, 03/04/19) SULFA (Adverse Reaction, Mild, Hives, 03/04/19) Home Medication List Reviewed: Yes ETU-Mynzza-Fmpldi Hx Patient Social History Marital Status: Employed/Student: retired Alcohol Use: Denies Use Recreational Drug Use: No Smoking Status: Never a Smoker 2nd Hand Smoke Exposure: No Recent Foreign Travel: No Recent Infectious Disease Expo: No Recent Hopitalizations: No Immunizations Up To Date Date of Pneumonia Vaccine: May 30, 2009 Date of Influenza Vaccine: May 30, 2019 Past Medical History discussed below Family Medical History Family Medical Hx noncontributory Review of Systems-General Review of Systems Constitutional: see HPI, fever, malaise EENTM: see HPI, no symptoms reported Respiratory: see HPI; No cough, No dyspnea on exertion, No hemoptysis, No orthopnea, No phlegm, No short of breath, No stridor, No wheezing, No other Cardiovascular: see HPI, chest pain; No edema, No Hx of Intervention; palpitations; No syncope, No vascular heart diseas, No other Gastrointestinal: see HPI, abdominal pain, diarrhea, nausea, vomiting Genitourinary: no symptoms reported, see HPI Musculoskeletal: no symptoms reported, see HPI Skin: no symptoms reported, see HPI Psychiatric/Neurological: No Symptoms Reported, See HPI All Other Systems Reviewed Negative Unless Noted: Yes (Negative excepted noted.) Reviewed Test Results Reviewed Test Results Lab Laboratory Tests Test 07/16/19 13:15 07/16/19 14:32 07/16/19 16:02 07/16/19 16:40 Range/Units White Blood Count 8.3 4.3-11.0 10^3/uL Red Blood Count 5.06 4.35-5.85 10^6/uL Hemoglobin 14.6 11.5-16.0 G/DL Hematocrit 45 35-52 % Mean Corpuscular Volume 88 80-99 FL Mean Corpuscular Hemoglobin 29 25-34 PG Mean Corpuscular Hemoglobin Concent 33 32-36 G/DL Red Cell Distribution Width 12.5 10.0-14.5 % Platelet Count 208 130-400 10^3/uL Mean Platelet Volume 10.5 H 7.4-10.4 FL Neutrophils (%) (Auto) 86 H 42-75 % Lymphocytes (%) (Auto) 8 L 12-44 % Monocytes (%) (Auto) 4 0-12 % Eosinophils (%) (Auto) 2 0-10 % Basophils (%) (Auto) 0 0-10 % Neutrophils # (Auto) 7.1 1.8-7.8 X 10^3 Lymphocytes # (Auto) 0.6 L 1.0-4.0 X 10^3 Monocytes # (Auto) 0.4 0.0-1.0 X 10^3 Eosinophils # (Auto) 0.2 0.0-0.3 10^3/uL Basophils # (Auto) 0.0 0.0-0.1 10^3/uL Neutrophils % (Manual) 80 % Lymphocytes % (Manual) 5 % Monocytes % (Manual) 4 % Eosinophils % (Manual) 3 % Band Neutrophils 8 % Blood Morphology Comment NORMAL Prothrombin Time 16.8 H 12.2-14.7 SEC INR Comment 1.3 0.8-1.4 Activated Partial Thromboplast Time 32 24-35 SEC Sodium Level 140 135-145 MMOL/L Potassium Level 4.4 3.6-5.0 MMOL/L Chloride Level 103 98-107 MMOL/L Carbon Dioxide Level 20 L 21-32 MMOL/L Anion Gap 17 H 5-14 MMOL/L Blood Urea Nitrogen 18 7-18 MG/DL Creatinine 1.25 0.60-1.30 MG/DL Estimat Glomerular Filtration Rate 41 BUN/Creatinine Ratio 14 Glucose Level 227 H 70-105 MG/DL Calcium Level 9.2 8.5-10.1 MG/DL Corrected Calcium 9.2 8.5-10.1 MG/DL Total Bilirubin 0.6 0.1-1.0 MG/DL Aspartate Amino Transf (AST/SGOT) 27 5-34 U/L Alanine Aminotransferase (ALT/SGPT) 21 0-55 U/L Alkaline Phosphatase 57 40-136 U/L Troponin I < 0.30 <0.30 NG/ML Pro-B-Type Natriuretic Peptide 405.2 H <75.0 PG/ML Total Protein 7.0 6.4-8.2 GM/DL Albumin 4.0 3.2-4.5 GM/DL Lipase 61 8-78 U/L Lactic Acid Level 2.13 *H 2.24 *H 0.50-2.00 MMOL/L Urine Color YELLOW Urine Clarity CLEAR Urine pH 6.0 5-9 Urine Specific [place] 1.010 L 1.016-1.022 Urine Protein TRACE H NEGATIVE Urine Glucose (UA) NEGATIVE NEGATIVE Urine Ketones NEGATIVE NEGATIVE Urine Nitrite NEGATIVE NEGATIVE Urine Bilirubin NEGATIVE NEGATIVE Urine Urobilinogen 0.2 < = 1.0 MG/DL Urine Leukocyte Esterase TRACE H NEGATIVE Urine RBC (Auto) NEGATIVE NEGATIVE Urine RBC NONE /HPF Urine WBC 2-5 /HPF Urine Squamous Epithelial Cells 5-10 /HPF Urine Crystals NONE /LPF Urine Bacteria NEGATIVE /HPF Urine Casts PRESENT /LPF Urine Hyaline Casts 2-5 H /LPF Urine Mucus SMALL H /LPF Urine Culture Indicated NO Test 07/16/19 19:35 07/17/19 02:00 Range/Units Troponin I < 0.028 0.028 <0.028 NG/ML White Blood Count 5.8 4.3-11.0 10^3/uL Red Blood Count 4.59 4.35-5.85 10^6/uL Hemoglobin 13.5 11.5-16.0 G/DL Hematocrit 39 35-52 % Mean Corpuscular Volume 86 80-99 FL Mean Corpuscular Hemoglobin 29 25-34 PG Mean Corpuscular Hemoglobin Concent 34 32-36 G/DL Red Cell Distribution Width 13.1 10.0-14.5 % Platelet Count 182 130-400 10^3/uL Mean Platelet Volume 10.6 H 7.4-10.4 FL Neutrophils (%) (Auto) 84 H 42-75 % Lymphocytes (%) (Auto) 8 L 12-44 % Monocytes (%) (Auto) 7 0-12 % Eosinophils (%) (Auto) 1 0-10 % Basophils (%) (Auto) 0 0-10 % Neutrophils # (Auto) 4.9 1.8-7.8 X 10^3 Lymphocytes # (Auto) 0.5 L 1.0-4.0 X 10^3 Monocytes # (Auto) 0.4 0.0-1.0 X 10^3 Eosinophils # (Auto) 0.1 0.0-0.3 10^3/uL Basophils # (Auto) 0.0 0.0-0.1 10^3/uL Sodium Level 138 135-145 MMOL/L Potassium Level 3.8 3.6-5.0 MMOL/L Chloride Level 109 H 98-107 MMOL/L Carbon Dioxide Level 18 L 21-32 MMOL/L Anion Gap 11 5-14 MMOL/L Blood Urea Nitrogen 16 7-18 MG/DL Creatinine 1.18 0.60-1.30 MG/DL Estimat Glomerular Filtration Rate 44 BUN/Creatinine Ratio 14 Glucose Level 176 H 70-105 MG/DL Lactic Acid Level 1.50 0.50-2.00 MMOL/L Calcium Level 8.4 L 8.5-10.1 MG/DL Phosphorus Level 3.1 2.3-4.7 MG/DL Magnesium Level 1.5 L 1.6-2.4 MG/DL Physical Exam Physical Exam Vital Signs Vital Signs - First Documented 07/16/19 13:05 Temp 36.1 Pulse 149 Resp 20 B/P (MAP) 156/68 (97) Pulse Ox 99 O2 Delivery Room Air Capillary Refill : Less Than 3 Seconds Height, Weight, BMI Height: 4'11.00" Weight: 181lbs. 0.0oz. 82.231654wk; 33.92 BMI Method:Stated General Appearance: No Apparent Distress, WD/WN Eyes: Bilateral Eye Normal Inspection, Bilateral Eye PERRL, Bilateral Eye EOMI HEENT: PERRL/EOMI, TMs Normal, Normal ENT Inspection, Pharynx Normal, Moist Mucous Membranes Neck: Full Range of Motion, Normal Inspection, Non Tender, Supple, Carotid Bruit Respiratory: Chest Non Tender, Normal Breath Sounds, No Accessory Muscle Use, No Respiratory Distress Cardiovascular: Regular Rate, Rhythm, No Edema, No Gallop, No JVD, No Murmur, Normal Peripheral Pulses Gastrointestinal: Normal Bowel Sounds, No Organomegaly, No Pulsatile Mass, Non Tender, Soft Back: Normal Inspection, No CVA Tenderness, No Vertebral Tenderness Extremity: Normal Capillary Refill, Normal Inspection, Normal Range of Motion, Non Tender, No Calf Tenderness, No Pedal Edema Neurologic/Psychiatric: Alert, Oriented x3, No Motor/Sensory Deficits, Normal Mood/Affect Skin: Normal Color, Warm/Dry Lymphatic: No Adenopathy A/P-Cardiology Admission Diagnosis Chest pain Palpitation Paroxysmal atrial fibrillation Coronary artery disease Assessment/Plan Chest pain nonspecific etiology, atypical in presentation, has history of coronary artery disease with stent in the past. Most recent stress test and 2-D echocardiogram done February 2019 revealed no ischemia or infarct with normal EF. Palpitation, secondary to paroxysmal atrial fibrillation and tachycardia, back to sinus rhythm and feeling better Paroxysmal atrial fibrillation, has history of atrial fibrillation in the past, has been on Xarelto on metoprolol, converted to sinus rhythm on Cardizem drip. I will stop the drip at this point and monitor. Gastroenteritis, nausea and vomiting and diarrhea with low-grade fever, reporting improvement, responding to IV fluid, managed by primary care physician . Coronary artery disease, history of stent done by Dr. Terry about 5-6 years ago, last stress test was done in February 2019 showing no significant ischemia or infarction. Paroxysmal atrial fibrillation, s/p Linq implantation in May 2019. Maintained on Xarelto 20 mg daily. has been having more frequent episodes of atrial fibrillation, I will interrogate her loop recorder Hypertension, restart home medication monitor Hyperlipidemia, maintained on Crestor, monitor lipids. Diabetes mellitus, followed and managed by primary care physician Peripheral edema, continue to monitor Nonobstructive carotid artery stenosis per carotid duplex done January 2019, continue to monitor Clinical Quality Measures DVT/VTE Risk/Contraindication: Risk Factor Score Per Nursin RFS Level Per Nursing on Admit: 3=High LEONARDO RANDHAWA MD Jul 17, 2019 07:25 POS
[2019-07-17] MEDS: OMEGA 3 (FISH OIL) 1000 MG CAP PO SCH ×2 (08:06→20:25)
[2019-07-17] MEDS: LOSARTAN 50 MG (COZAAR) TAB PO SCH (08:06)
[2019-07-17] MEDS: PANTOPRAZOLE 40 MG (PROTONIX) TAB PO SCH (08:06)
[2019-07-17] MEDS ORDERED: ROSUVASTATIN 20 MG (CRESTOR) TABLET PO SCH ×2 (09:00→21:00)
[2019-07-17] MEDS ORDERED: meTOproloL SUCCINATE 50 MG (TOPROL XL) TAB PO SCH (09:00)
[2019-07-17] MEDS ORDERED: POLY15DR14 OU (10:14)
[2019-07-17] MEDS ORDERED: METO50TA15 PO (10:14)
[2019-07-17] MEDS ORDERED: CYAN-41 PO (10:14)
[2019-07-17] MEDS ORDERED: TRIM100T PO (10:14)
[2019-07-17] MEDS ORDERED: GABA-486 PO (10:14)
[2019-07-17] MEDS ORDERED: POTA10TA10 PO (10:14)
[2019-07-17] MEDS ORDERED: GLIP10TA24 PO (10:14)
[2019-07-17] MEDS ORDERED: ROSU40TA23 PO (10:14)
[2019-07-17] MEDS ORDERED: RIVA20TA PO (10:14)
--- NOTE | 2019-07-17 10:18 | NUR ---
SPOKE WITH THE PATIENT ABOUT HER MEDICATIONS. SHE HAD MOST OF HER BOTTLES HERE WITH HER EXCEPT FOR HER GLIPIZIDE AND OTC MEDS. WE WENT OVER THE EXT MED HX AND SHE VERIFIED HOW SHE TAKES THEM. HER TRIMETHOPRIM HAS NOT BEEN FILLED SINCE FEBRUARY ACCORDING TO THE EXT MED HX BUT SHE STATES SHE ONLY TAKES IT EVERY 3 DAYS. IN ADDITION TO THE EXT MED HX SHE FILLS THE FOLLOWING AT [facility]: 07-03-19 XARELTO 20MG HS #30 05-31-19 GABAPENTIN 100MG TID #90 OTC MEDS: B12 1000MCG DAILY COLACE 2 HS PRN FISH OIL BID ARTIFICIAL TEARS NEEDED
--- NOTE | 2019-07-17 11:16 | History & Physical-Hospitalist ---
VIRGIL SYED [facility] 07/17/19 1116: History of Present Illness HPI/Chief Complaint CC: Nausea and Vomiting, A fib RVR Pt was seen in the [place] ER after having some vomiting that started yesterday morning. She was unable to eat and vomited multiple times at home. During the work up at the ER they found she was in A fib with RVR, and sent her down this hospital to be admitted. She has a history of A fib, and she was able to be converted back to sinus rhythm overnight on a Cardizem drip. She reports having been feeling sick with a head cold for about two weeks that had an associated cough develop that did produce some white phlegm, and then the vomiting this weekend which says may have started from not being able to cough up all of the phlegm in her throat. She reported having some epigastric pain last night while in the hospital and having some diarrhea overnight as well. She reports feeling a little better this morning, but has not been hungry or ate anything yet today. She does report not having the nausea or vomiting since getting the medication for it. Source: patient, spouse Exam Limitations: no limitations Date Seen 07/17/19 Time Seen by a Provider: 07:36 Attending Physician Rony Veloz MD PCP Jeanette Da Silva MD Referring Physician Date of Admission Jul 16, 2019 at 16:50 Home Medications & Allergies Home Medications Reviewed patient Home Medication Reconciliation performed by pharmacy medication reconciliations plasma center technician and/or nursing. Patients Allergies have been reviewed. Allergies Allergies Coded Allergies morphine (Verified Allergy, Intermediate, 02/13/19) povidone-iodine (Verified Allergy, Intermediate, 02/13/19) thiopental (Verified Allergy, Intermediate, 02/13/19) tramadol (Verified Allergy, Intermediate, 02/13/19) metoclopramide (Unverified Adverse Reaction, Unknown, 03/04/19) Uncoded Allergies ADHESIVE TAPE-SILICONES ( Adverse Reaction, Mild, rash, 03/04/19) BETADINE SURGI-PREP ( Adverse Reaction, Mild, itching, 03/04/19) SULFA ( Adverse Reaction, Mild, Hives, 03/04/19) Past Inzunqt-Fpybit-Amqajl Hx Past Med/Social Hx: Reviewed Nursing Past Med/Soc Hx Patient Social History Marrital Status: Employed/Student: retired Alcohol Use: Denies Use Recreational Drug Use: No Smoking Status: Never a Smoker 2nd Hand Smoke Exposure: No Recent Foreign Travel: No Contact w/other who traveled: No Recent Hopitalizations: No Recent Infectious Disease Expo: No Immunizations Up To Date Date of Pneumonia Vaccine: May 30, 2009 Date of Influenza Vaccine: May 30, 2019 Seasonal Allergies Seasonal Allergies: No Past Medical History Surgeries: Adenoidectomy, Coronary Stent, Gallbladder, Hysterectomy, Orthopedic, Tonsillectomy Cardiac: Atrial Fibrillation, High Cholesterol, Hypertension Neurological: Neuropathy Sexually Transmitted Disease: No HIV/AIDS: No Genitourinary: UTI-Chronic Gastrointestinal: Gastroesophageal Reflux Musculoskeletal: Degenerate Disk Disease, Osteoporosis, Arthritis Endocrine: Diabetes, Non-Insulin dep HEENT: Cataract Loss of Vision: Bilateral Hearing Impairment: Denies Cancer: Skin Did You Recieve Any Treatments: Yes What Type of Treatment Did You: Surgical Intervention Skin/Integumentary: Recent Skin Changes History of Blood Disorders: Yes (Blood clotting disorder) Adverse Reaction to Blood Damian: No Family History Reviewed Nursing Family Hx Review of Systems Constitutional: No chills, No dizziness, No fever EENTM: ear pain, nose congestion; No blurred vision, No double vision Respiratory: cough, phlegm; No short of breath Cardiovascular: No chest pain, No palpitations Gastrointestinal: abdominal pain; No constipation; diarrhea; No nausea, No vomiting Genitourinary: No dysuria, No hematuria Skin: no symptoms reported Psychiatric/Neurological: Denies Headache, Denies Numbness, Denies Tingling Physical Exam Physical Exam Vital Signs Vital Signs - First Documented 07/16/19 13:05 Temp 36.1 Pulse 149 Resp 20 B/P (MAP) 156/68 (97) Pulse Ox 99 O2 Delivery Room Air Capillary Refill : Less Than 3 Seconds Height, Weight, BMI Height: 4'11.00" Weight: 181lbs. 0.0oz. 82.128019bg; 33.92 BMI Method:Stated General Appearance: No Apparent Distress, WD/WN Respiratory: Chest Non Tender, Lungs Clear, Normal Breath Sounds, No Accessory Muscle Use, No Respiratory Distress Cardiovascular: Regular Rate, Rhythm, No Edema, No Murmur, Normal Peripheral Pulses Extremity: Normal Inspection, Non Tender, No Calf Tenderness, No Pedal Edema Neurologic/Psychiatric: Alert, Oriented x3, No Motor/Sensory Deficits, Normal Mood/Affect Skin: Normal Color, Warm/Dry Results Results/Procedures Labs Laboratory Tests 07/16/19 13:15 07/17/19 02:00 Patient resulted labs reviewed. Assessment/Plan Assessment and Plan Assessment: Nausea/Vomiting A fib RVR converted to sinus Lactic Acidosis improved Hypomagnesium HTN Plan: Consult cardiology IV fluids Magnesium replacement Manage nausea/vomiting with ondansetron Physical Therapy Continue home medications Clinical Quality Measures DVT/VTE Risk/Contraindication: Risk Factor Score Per Nursin RFS Level Per Nursing on Admit: 3=High KAYA MEIER DO 07/17/191817: History of Present Illness HPI/Chief Complaint CC: AF with RVR HPI: This is an 83yoWF clinic pt of Dr. Da Silva who presented to the ER in [place] with severe nausea and vomiting found to have AF with RVR placed in ICU with cardiology consultation. Pt converted to normal sinus rhythm and transferred to cardiac stepdown with close monitoring. Echocardiogram will be ordered and pt will likely remain in the hospitaluntil tomorrow. I did order PT and OT since she appeared to be slightly weak and she lives at home with her . Past Quflypp-Mwihzw-Dmnouu Hx Past Med/Social Hx: Reviewed Nursing Past Med/Soc Hx, Reviewed and Corrections made Patient Social History Marrital Status: Review of Systems Constitutional: see HPI Cardiovascular: palpitations Physical Exam Physical Exam General Appearance: No Apparent Distress, Anxious, Chronically ill Eyes: Right Eye Normal Inspection, Right Eye PERRL HEENT: PERRL/EOMI, Normal ENT Inspection, Pharynx Normal, Moist Mucous Membranes Neck: Full Range of Motion, Normal Inspection, Non Tender Respiratory: Chest Non Tender, Lungs Clear, Normal Breath Sounds, No Accessory Muscle Use, No Respiratory Distress Cardiovascular: Regular Rate, Rhythm, No Edema, No Gallop, No JVD, No Murmur, Normal Peripheral Pulses Gastrointestinal: Normal Bowel Sounds, No Organomegaly, No Pulsatile Mass, Non Tender, Soft Back: Normal Inspection, No CVA Tenderness, No Vertebral Tenderness Extremity: Normal Capillary Refill, Normal Inspection, Normal Range of Motion, Non Tender, No Calf Tenderness, No Pedal Edema Neurologic/Psychiatric: Alert, Oriented x3, No Motor/Sensory Deficits, Normal Mood/Affect Skin: Normal Color, Warm/Dry Lymphatic: No Adenopathy Assessment/Plan Admission Diagnosis Assessment: New onset AF w/RVR now NSR N/V Debility Plan: Cardiology appreciated N/V treatment Monitor closely PT/OT Admission Status: Inpatient Order (span 2 midnights) Reason for Inpatient Admission: AF w/RVR Diagnosis/Problems Diagnosis/Problems (1) Atrial fibrillation with rapid ventricular response Status: Acute (2) Lactic acid acidosis Status: Acute (3) Vomiting Status: Acute Qualifiers: Vomiting type: unspecified Vomiting Intractability: non-intractable Nausea presence: with nausea Qualified Codes: R11.2 - Nausea with vomiting, unspecified Supervisory-Addendum Brief Verification & Attestation Participated in pt care: history, MDM, physical Personally performed: exam, history, MDM, supervision of care Care discussed with: Medical Student Procedures: n/a Results interpretation: Verified all documentation Verification and Attestation of Medical Student E/M Service A medical student performed and documented this service in my presence. I revi ewed and verified all information documented by the medical student and made modifications to such information, when appropriate. I personally performed the physical exam and medical decision making. Kaya Meier, Jul 17, 2019,18:18 VIRGIL SYED MED STUD Jul 17, 2019 11:16 KAYA WILDE DO Jul 17, 2019 18:18 POS
--- NOTE | 2019-07-17 11:52 | Physical Therapy Evaluation ---
PT Evaluation-General Medical Diagnosis Admission Date Jul 16, 2019 at 16:50 Medical Diagnosis: vomiting, cough Onset Date: Jul 16, 2019 Therapy Diagnosis Therapy Diagnosis: weakness Height/Weight Height (Feet): 4 Height (Inches): 11.00 Weight (Pounds): 181 Weight (Ounces): 0.0 Precautions Precautions/Isolations: Standard Precautions Referral Physician: Honey Reason for Referral: Evaluation/Treatment Medical History Pertinent Medical History: Atrial Fib, Arthritis, DM, HTN, Neuropathy Current History ER secondary to cough and vomiting Reviewed History: Yes Social History Home: Single Level Current Living Status: Spouse Entry Into Home: Stairs With Railing PT Steps Into Home: 2 Prior Prior Level of Function SCALE: Activities may be completed with or without assistive devices. 0-Adlgghkjpo-uepaped completes the activity by him/herself with no assistance from a helper. 5-Set-up or Clean-up Assistance-helper sets up or cleans up; patient completes activity. Mallie assists only prior to or following the activity. 4-Supervision or Touching Assistance-helper provides verbal cues and/or touching/steadying and/or contact guard assistance as patient completes activity. Assistance may be provided throughout the activity or intermittently. 3-Partial/Moderate Assistance-helper does LESS THAN HALF the effort. Mallie lifts, holds or supports trunk or limbs, but provides less than half the effort. 2-Substantial/Maximal Assistance-helper does MORE THAN HALF the effort. Mallie lifts or holds trunk or limbs and provides more than half the effort. 4-Kjseevkpp-pjyqty does ALL the effort. Patient does none of the effort to complete the activity. Or, the assistance of 2 or more helpers is required for the patient to complete the activity. If activity was not attempted, code reason: 7-Patient Refused. 9-Not Applicable-not attempted and the patient did not perform the activity before the current illness, exacerbation or injury. 10-Not Attempted due to Environmental Limitations-(lack of equipment, weather restraints, etc.). 88-Not Attempted due to Medical Conditions or Safety Concerns. Bed Mobility: 6 Transfers (B,C,W/C): 6 Gait: 6 Stairs: 6 Indoor Mobility (Ambulation): Independent Stairs: Independent Prior Devices Use: Other-see list below Prior Device Use: has cane; rarely uses PT Evaluation-Current Subjective Patient agrees to PT to walk in hallways. Reports she doesn't use AD at home and feels steady on her feet currently without AD. Reports no pain. Pain Numeric Pain Scale: 0-No Pain Location: No Pain Reported Objective Patient Orientation: Normal For Age Problem Solving: Good Attachments: IV ROM/Strength ROM Lower Extremities WFL Strength Lower Extremities R: grossly 4/5; L: grossly 3/5 Integumentary/Posture Integumentary See nursing notes Bowel Incontinence: No Bladder Incontinence: No Posture WFL Sensory Vision: VIRGIL noted in H&P; cataracts Hearing: Functional Transfers Sit to Stand (QC): 6 Gait Does the Patient Walk?: Yes Mode of Locomotion: Walk Anticipated Mode of Locomotion: Walk Distance: 1=849-05 ft Walk 10 feet (QC): 6 Walk 50 ft with 2 Turns(QC): 6 Walk 150 ft (QC): 6 Distance: 200' Gait Assistive Device: None Comments/Gait Description Normal pace and pattern Balance Sitting Static: Normal Sitting Dynamic: Normal Standing Static: Normal Standing Dynamic: Normal Picking up an Object (QC): 6 Assessment/Needs Patient sitting in recliner and able to stand without assistance. Patient ambulates 200' independently without AD. Patient returned to chair at conclusion of treatment. At this time, patient does not require skilled physical therapy services d/t independence in functional activities. Rehab Potential: Fair PT Plan Treatment/Plan Treatment Plan: Discontinue PT Treatment Plan: Other Treatment Duration: Jul 17, 2019 Frequency: 1 time per week Estimated Hrs Per Day: .25 hour per day Patient and/or Family Agrees t: Yes Time/GCodes Time In: 1124 Time Out: 1133 Total Billed Treatment Time: 9 Total Billed Treatment 1 visit EVLowC 9min BASHIR JOHNSON PT Jul 17, 2019 11:52 POS
--- NOTE | 2019-07-17 13:55 | NUR ---
"RD ASSESSMENT PMHx: HTN; CAD; HLD; DM PT INTERACTION: Pt was awake and pleasant during nutrition assessment. Note family was present at bedside. Pt states current appetite is pretty poor and has been for the past several weeks. Note pt avg PO intake of 50% [id number], per chart review. Pt states following a regular diet at home, and currently has no issues chewing/swallowing food. Pt states episodes of nausea/vomiting over the last 2 weeks. Note pt currently on zofran PRN. Pt stated from granddaughter (not present) that one episode of vomit was yellow and had a bitter consistency. Pt states one episode of diarrhea on 07/15. Note last BM was 07/17, and pt not currently on bowel regimen, per chart review. Pt states current DM management is good, and that her last HbA1c was 6.7, taken approximately 2 months ago. Pt states no recent wt changes. Note 7# wt loss x5w, per chart review. ABNORMAL NUTRITION-RELATED LAB VALUES: Cl 109 (H); glu 176 (H); Mg 1.5 (L) Est. kcal needs: 3225-5087 kcal | 15-20 kcal/kg Est. Pro needs: 63-79 g Pro | 0.8-1.0 g Pro/kg PES STATEMENT: Inadequate oral intake (NI-2.1) related to loss of appetite | nausea | vomiting as evidenced by pt interview INTERVENTION: Continue with current diet order of Regular diet. Add Glucerna (vary) to breakfast meal tray. Provides 220 kcal and 10 g Pro per serving. Will continue to follow and reassess as pt needs and status change. MONITOR/EVALUATE: PO Intake; Plan of Care; Hydration Status; Weight Status; Lab Values Raymon Collado, MS, RD, LD"
--- NOTE | 2019-07-17 14:02 | Occupational Therapy Eval ---
OT Evaluation-General/PLF Medical Diagnosis Admission Date Jul 16, 2019 at 16:50 Medical Diagnosis: Uncomplicated diverticulosis Onset Date: Jul 16, 2019 Therapy Diagnosis Therapy Diagnosis: Weakness Height/Weight Height (Feet): 4 Height (Inches): 11.00 Weight (Pounds): 181 Weight (Ounces): 0.0 Precautions Precautions/Isolations: Standard Precautions Safety Interventions: None Weight Bear Status Weight Bearing Restriction: Weight Bearing/Tolerated Referral Physician: Honey Referral Reason: Activity Tolerance, Self Care, Evaluation/Treatment, Strengthening/ROM Medical History Pertinent Medical History: Atrial Fib, Arthritis, DM, HTN, Neuropathy Additional Medical History Hyperlipidemia, Coronary stent, hysterectomy, adenoidectomy Current History Pt. states that she began to vomit at home and had a cough. Reports that her HR was 140, and so her spouse thought it best to come to the hospital. Social History Home: Single Level Current Living Status: Spouse Entry Into Home: Stairs With Railing Steps Into Home: 2 ADL-Prior Level of Function SCALE: Activities may be completed with or without assistive devices. 1-Yderyoavhm-nszaprc completes the activity by him/herself with no assistance from a helper. 5-Set-up or Clean-up Assistance-helper sets up or cleans up; patient completes activity. Clinton assists only prior to or following the activity. 4-Supervision or Touching Assistance-helper provides verbal cues and/or touching/steadying and/or contact guard assistance as patient completes activity. Assistance may be provided throughout the activity or intermittently. 3-Partial/Moderate Assistance-helper does LESS THAN HALF the effort. Clinton lifts, holds or supports trunk or limbs, but provides less than half the effort. 2-Substantial/Maximal Assistance-helper does MORE THAN HALF the effort. Clinton lifts or holds trunk or limbs and provides more than half the effort. 4-Eyswemxyp-ipizab does ALL the effort. Patient does none of the effort to co mplete the activity. Or, the assistance of 2 or more helpers is required for the patient to complete the activity. If activity was not attempted, code reason: 7-Patient Refused. 9-Not Applicable-not attempted and the patient did not perform the activity before the current illness, exacerbation or injury. 10-Not Attempted due to Environmental Limitations-(lack of equipment, weather restraints, etc.). 88-Not Attempted due to Medical Conditions or Safety Concerns. ADL PLOF Comments Pt. states that she is independent normally with all ADL tasks at home. Self Care: Independent Functional Cognition: Independent OT Current Status Subjective No pain reported. Appearance Pt. in bed when OT enters room. Agrees to work with OT. Mental Status/Objective Patient Orientation: Person, Place, Time, Situation Attachments: IV Current Upper Extremity ROM WFL ADL-Treatment Lower Body Dressing (QC): 6 On/Off Footwear (QC): 6 Toileting Hygiene (QC): 6 Toilet Transfer (QC): 6 Other Treatments Pt. transferred supine-sit with independence, and then ambulated to bathroom with independence. Pt. able to toilet self with no difficulty, and then stood at sink to wash hands. Ambulated back to chair in room and doffed/donned slipper socks with independence. Transferred to bed with no difficulty. All needs met. Pt. reports that she is doing well. States that she is discharging tomorrow with spouse support at home. Due to pt's ability to reach feet, transfer with independence, and toilet self with independence, no further OT warranted at this time. Will discharge OT services. Education OT Patient Education: Correct positioning, Modified ADL techniques, Progress toward Goal/Update tx plan, Purpose of tx/functional activities, Reviewed precautions, Rehab process, Transfer techniques Teaching Recipient: Patient Teaching Methods: Demonstration, Discussion Response to Teaching: Verbalize Understanding, Return Demonstration OT Short Term Goals Short Term Goals 1=Demonstrate adherence to instructed precautions during ADL tasks. 2=Patient will verbalize/demonstrate understanding of assistive devices/modifications for ADL. 3=Patient will improve strength/tolerance for activity to enable patient to perform ADL's. OT Bed And Breakfast Innkeeper Goals Bed And Breakfast Innkeeper Goals Time Frame: Jul 17, 2019 Additional Goals: 1-Demonstrate ADL Tasks, 2-Verbalize Understanding 1=Demonstrate adherence to instructed precautions during ADL tasks. 2=Patient will verbalize/demonstrate understanding of assistive devices/modifications for ADL. 3=Patient will improve strength/tolerance for activity to enable patient to perform ADL's. No further OT goals at this time. OT Education/Plan Problem List/Assessment Assessment: No Skilled OT Needs ID'd Discharge Recommendations Plan/Recommendations: Discharge/Goals Met Treatment Plan/Plan of Care Treatment,Training & Education: Yes Plan of Care: OTHER (No further goals at this time.) Treatment Duration: Jul 17, 2019 Frequency: 1 time per week Estimated Hrs Per Day: .25 hour per day Agreement: Yes Rehab Potential: Good Time/GCodes Start Time: 13:10 Stop Time: 13:25 Total Time Billed (hr/min): 15 Billed Treatment Time 1, EVL x 15minutes Discharge from OT services. No further OT warranted at this time. VANESSA HUTCHINS OT Jul 17, 2019 14:02 POS
[2019-07-17] MEDS: NS IV 1000 ML 1,000 ML IV SCH (14:51)
[2019-07-17] MEDS ORDERED: RIVAROXABAN 20 MG TABLET (XARELTO) PO SCH (17:00)
[2019-07-17] MEDS: LOPERAMIDE 2 MG (IMODIUM) TABLET PO PRN ×2 (17:42→20:24)
[2019-07-17] MEDS: meTOprolol TARTRATE 50 MG (LOPRESSOR) TAB PO SCH (20:25)
[2019-07-18 00:57] VITALS: BP 138/70
[2019-07-18 04:02] LABS: BASOPHILS % (AUTO) 0 % (0-10); EOSINOPHILS # (AUTO) 0.2 10^3/uL (0.0-0.3); EOSINOPHILS % (AUTO) 3 % (0-10); HEMATOCRIT 36 % (35-52); HEMOGLOBIN 11.7 G/DL (11.5-16.0); LYMPHOCYTES # (AUTO) 1.5 X 10^3 (1.0-4.0); LYMPHOCYTES % (AUTO) 31 % (12-44); MEAN CORPUSCULAR HEMOGLOBIN 29 PG (25-34); MEAN CORPUSCULAR HGB CONC 33 G/DL (32-36); MEAN CORPUSCULAR VOLUME 88 FL (80-99); MEAN PLATELET VOLUME 10.4 FL (7.4-10.4); MONOCYTES # (AUTO) 0.5 X 10^3 (0.0-1.0); MONOCYTES % (AUTO) 11 % (0-12); NEUTROPHILS # (AUTO) 2.6 X 10^3 (1.8-7.8); NEUTROPHILS % (AUTO) 54 % (42-75); PLATELET COUNT 178 10^3/uL (130-400); RED CELL DISTRIBUTION WIDTH 12.8 % (10.0-14.5); WHITE BLOOD COUNT 4.8 10^3/uL (4.3-11.0)
[2019-07-18] MEDS: NS IV 1000 ML 1,000 ML IV SCH (04:06)
[2019-07-18 04:08] VITALS: BP 138/76
[2019-07-18 04:31] LABS: CALCIUM 8.2 MG/DL (8.5-10.1); CREATININE SERUM 1.1 MG/DL (0.60-1.30); MAGNESIUM 1.9 MG/DL (1.6-2.4); PHOSPHORUS 2.9 MG/DL (2.3-4.7)
[2019-07-18] MEDS: MAGNESIUM 1 GM/100 ML IVPB 100 ML IV SCH (06:11)
[2019-07-18] MEDS: POTASSIUM CL 10MEQ/50ML IVPB 50 ML IV SCH (06:11)
[2019-07-18] MEDS: KCL 20 MEQ TAB (K-DUR) PO SCH (06:11)
[2019-07-18 07:45] VITALS: BP 133/74
--- NOTE | 2019-07-18 07:48 | Cardiology Progress Note ---
Subjective Date Seen by Provider: Jul 18, 2019 Time Seen by Provider: 07:46 Subjective/Events-last exam Patient is laying down in bed, feeling better. No chest pain. No palpitation Review of Systems General: No Chills, No Night Sweats, No Fatigue, No Malaise, No Appetite, No Other HEENT: No Head Aches, No Visual Changes, No Eye Pain, No Ear Pain, No Dysphasia, No Sinus Congestion, No Post Nasal Drip, No Sore Throat, No Other Pulmonary: No Dyspnea, No Cough, No Pleuritic Chest Pain, No Other Cardiovascular: No: Chest Pain, Palpitations, Orthopnea, Paroxysmal Noc. Dyspnea, Edema, Lt Headedness, Other Focused Exam Lactate Level 07/16/19 14:32: Lactic Acid Level 2.13*H 07/16/19 16:40: Lactic Acid Level 2.24*H 07/17/19 02:00: Lactic Acid Level 1.50 Objective-Cardiology Exam Last Set of Vital Signs Vital Signs 07/18/19 07:45 Temp 36.4 Pulse 67 Resp 20 B/P (MAP) 133/74 (93) Pulse Ox 95 O2 Delivery Room Air Capillary Refill : Less Than 3 Seconds I&O Intake and Output 07/18/19 00:00 Intake Total 1270 ml Output Total 350 ml Balance 920 ml Intake Oral 270 ml IV Total 1000 ml Output Urine Total 350 ml # Voids 5 # Bowel Movements 4 General: Alert, Oriented X3, Cooperative HEENT: Atraumatic, PERRLA Neck: Supple, No JVD, No Thyromegaly Lungs: Clear to Auscultation, Normal Air Movement Heart: Regular Rate, Normal S1, Normal S2, No Murmurs Abdomen: Normal Bowel Sounds, Soft, No Tenderness, No Hepatosplenomegaly, No Masses Extremities: No Clubbing, No Cyanosis, No Edema, Normal Pulses, No Tenderness/Swelling Skin: No Rashes, No Breakdown, No Significant Lesion Neuro: Normal Gait, Normal Speech, Strength at 5/5 X4 Ext, Normal Tone, Sensation Intact Psych/Mental Status: Mental Status NL, Mood NL Results Lab Laboratory Tests 07/18/19 03:30 A/P-Cardiology Admission Diagnosis Chest pain Palpitation Paroxysmal atrial fibrillation Coronary artery disease Assessment/Plan Chest pain nonspecific etiology, atypical in presentation, has history of coronary artery disease with stent in the past. Most recent stress test and 2-D echocardiogram done February 2019 revealed no ischemia or infarct with normal EF. Palpitation, secondary to paroxysmal atrial fibrillation and tachycardia, back to sinus rhythm and feeling better, ok for discharge from cardiology standpoint and follow-up as an outpatient Paroxysmal atrial fibrillation, has history of atrial fibrillation in the past, has been on Xarelto on metoprolol, continue to monitor as an outpatient Gastroenteritis, nausea and vomiting and diarrhea with low-grade fever, reporting improvement, responding to IV fluid, reporting improvement, managed by primary care physician Coronary artery disease, history of stent done by Dr. Terry about 5-6 years ago, last stress test was done in February 2019 showing no significant ischemia or infa rction. Paroxysmal atrial fibrillation, s/p Linq implantation in May 2019. Maintained on Xarelto 20 mg daily. has been having more frequent episodes of atrial fibrillation, I will interrogate her loop recorder Hypertension, restart home medication monitor Hyperlipidemia, maintained on Crestor, monitor lipids. Diabetes mellitus, followed and managed by primary care physician Peripheral edema, continue to monitor Nonobstructive carotid artery stenosis per carotid duplex done January 2019, continue to monitor Okay for discharge and follow-up as an outpatient. Clinical Quality Measures DVT/VTE Risk/Contraindication: Risk Factor Score Per Nursin RFS Level Per Nursing on Admit: 3=High LEONARDO RANDHAWA MD Jul 18, 2019 07:48 POS
[2019-07-18] MEDS: meTOprolol TARTRATE 50 MG (LOPRESSOR) TAB PO SCH (08:07)
[2019-07-18] MEDS: PANTOPRAZOLE 40 MG (PROTONIX) TAB PO SCH (08:07)
[2019-07-18] MEDS: LOSARTAN 50 MG (COZAAR) TAB PO SCH (08:07)
[2019-07-18] MEDS: OMEGA 3 (FISH OIL) 1000 MG CAP PO SCH (08:07)
--- NOTE | 2019-07-18 08:37 | Diagnostic Imaging Report ---
INDICATION: Dyspnea. Compared 07/17/2019 FINDINGS: The heart size is stable. No effusion or pneumothorax. No vascular congestion or evidence for pulmonary edema. IMPRESSION: No acute appearing abnormality Dictated by: Dictated on workstation # [id number]
--- NOTE | 2019-07-18 10:38 | Discharge Summary ---
VIRGIL SYED [facility] 07/18/19 1038: Diagnosis/Chief Complaint Date of Admission Jul 16, 2019 at 16:50 Date of Discharge Discharge Date: Jul 18, 2019 Admission Diagnosis Assessment: New onset AF w/RVR now NSR N/V Debility Plan: Cardiology appreciated N/V treatment Monitor closely PT/OT Primary Care Jeanette Da Silva MD Discharge Diagnosis (1) Atrial fibrillation with rapid ventricular response Status: Acute (2) Lactic acid acidosis Status: Acute (3) Vomiting Status: Acute Discharge Summary Discharge Physical Exam Allergies: Coded Allergies: morphine (Verified Allergy, Intermediate, 02/13/19) povidone-iodine (Verified Allergy, Intermediate, 02/13/19) thiopental (Verified Allergy, Intermediate, 02/13/19) tramadol (Verified Allergy, Intermediate, 02/13/19) metoclopramide (Unverified Adverse Reaction, Unknown, 03/04/19) Uncoded Allergies: ADHESIVE TAPE-SILICONES (Adverse Reaction, Mild, rash, 03/04/19) BETADINE SURGI-PREP (Adverse Reaction, Mild, itching, 03/04/19) SULFA (Adverse Reaction, Mild, Hives, 03/04/19) Vitals & I&Os Vital Signs Date Time Temp Pulse Resp B/P (MAP) Pulse Ox O2 Delivery O2 Flow Rate FiO2 07/18/19 08:44 Room Air 07/18/19 07:45 36.4 67 20 133/74 (93) 95 General Appearance: No Apparent Distress, WD/WN Respiratory: Chest Non Tender, Lungs Clear, Normal Breath Sounds, No Accessory Muscle Use, No Respiratory Distress Cardiovascular: Regular Rate, Rhythm, No Murmur, Normal Peripheral Pulses Extremity: Non Tender, No Calf Tenderness, No Pedal Edema Skin: Normal Color, Warm/Dry Neurologic/Psychiatric: Alert, Oriented x3, No Motor/Sensory Deficits, Normal Mood/Affect Hospital Course Pt was admitted from [facility] after having one day of vomiting that brought her to the ER were they found she was in Afib with RVR. She was able to be converted to sinus using Cardizem and her vomiting was controlled using Zofran. She was admitted to ICU where did convert to sinus and then moved to step down unit for one more day of observation. She was able to walk and eat without difficulty and returned to her baseline levels. She was able to be discharged to home with her with a close follow up at the clinic with her PCP, and with her audit tech. Labs (last 24 hrs) Laboratory Tests 07/18/19 03:30: White Blood Count 4.8, Red Blood Count 4.09L, Hemoglobin 11.7, Hematocrit 36, Mean Corpuscular Volume 88, Mean Corpuscular Hemoglobin 29, Mean Corpuscular Hemoglobin Concent 33, Red Cell Distribution Width 12.8, Platelet Count 178, Mean Platelet Volume 10.4, Neutrophils (%) (Auto) 54, Lymphocytes (%) (Auto) 31, Monocytes (%) (Auto) 11, Eosinophils (%) (Auto) 3, Basophils (%) (Auto) 0, Neutrophils # (Auto) 2.6, Lymphocytes # (Auto) 1.5, Monocytes # (Auto) 0.5, Eosinophils # (Auto) 0.2, Basophils # (Auto) 0.0, Sodium Level 141, Potassium Level 4.0, Chloride Level 113H, Carbon Dioxide Level 18L, Anion Gap 10, Blood Urea Nitrogen 11, Creatinine 1.10, Estimat Glomerular Filtration Rate 47, BUN/ Creatinine Ratio 10, Glucose Level 116H, Calcium Level 8.2L, Phosphorus Level 2.9, Magnesium Level 1.9 Patient resulted labs reviewed. Pending Labs Laboratory Tests 07/18/19 03:30: White Blood Count 4.8, Red Blood Count 4.09, Hemoglobin 11.7, Hematocrit 36, Mean Corpuscular Volume 88, Mean Corpuscular Hemoglobin 29, Mean Corpuscular Hemoglobin Concent 33, Red Cell Distribution Width 12.8, Platelet Count 178, Ngoc n Platelet Volume 10.4, Neutrophils (%) (Auto) 54, Lymphocytes (%) (Auto) 31, Monocytes (%) (Auto) 11, Eosinophils (%) (Auto) 3, Basophils (%) (Auto) 0, Neutrophils # (Auto) 2.6, Lymphocytes # (Auto) 1.5, Monocytes # (Auto) 0.5, Eosinophils # (Auto) 0.2, Basophils # (Auto) 0.0, Sodium Level 141, Potassium Level 4.0, Chloride Level 113, Carbon Dioxide Level 18, Anion Gap 10, Blood Urea Nitrogen 11, Creatinine 1.10, Estimat Glomerular Filtration Rate 47, BUN/Creatinine Ratio 10, Glucose Level 116, Calcium Level 8.2, Phosphorus Level 2.9, Magnesium Level 1.9 Discharge Home Medications: Active Scripts Active Reported Trimethoprim 100 Mg Tablet 100 Mg PO Q72H Gabapentin 100 Mg Capsule 100 Mg PO TID Xarelto (Rivaroxaban) 20 Mg Tablet 20 Mg PO 1800 Artificial Tears Drops (Polyvinyl Alcohol/Povidone) 15 Ml Drops 1-2 Drop OU TID PRN Glipizide ER (Glipizide) 10 Mg Tab.er.24 10 Mg PO BID Rosuvastatin Calcium 40 Mg Tablet 40 Mg PO HS Metoprolol Tartrate 50 Mg Tablet 50 Mg PO BID Potassium Chloride 10 Meq Tablet.er 20 Meq PO DAILY Vitamin B-12 (Cyanocobalamin (Vitamin B-12)) 1,000 Mcg Tablet 1,000 Mcg PO DAILY Stool Softener (Docusate Sodium) 100 Mg Tablet 200 Mg PO HS PRN TAKES 2 (100MG) TABLETS Pantoprazole Sodium 40 Mg Tablet.dr 40 Mg PO DAILY Fish Oil 1,000 mg Softgel (Antelope-3 Fatty Acids/Fish Oil) 1 Each Capsule 1,000 Mg PO BID Losartan Potassium 50 Mg Tablet 50 Mg PO DAILY Instructions to patient/family Please see electronic discharge instructions given to patient. Clinical Quality Measures DVT/VTE Risk/Contraindication: Risk Factor Score Per Nursin RFS Level Per Nursing on Admit: 3=High KAYA MEIER DO 07/18/192020: Discharge Summary Discharge Physical Exam Allergies: Coded Allergies: morphine (Verified Allergy, Intermediate, 02/13/19) povidone-iodine (Verified Allergy, Intermediate, 02/13/19) thiopental (Verified Allergy, Intermediate, 02/13/19) tramadol (Verified Allergy, Intermediate, 02/13/19) metoclopramide (Unverified Adverse Reaction, Unknown, 03/04/19) Uncoded Allergies: ADHESIVE TAPE-SILICONES (Adverse Reaction, Mild, rash, 03/04/19) BETADINE SURGI-PREP (Adverse Reaction, Mild, itching, 03/04/19) SULFA (Adverse Reaction, Mild, Hives, 03/04/19) General Appearance: No Apparent Distress, WD/WN Respiratory: Lungs Clear Cardiovascular: Regular Rate, Rhythm Neurologic/Psychiatric: Alert, Oriented x3, No Motor/Sensory Deficits, Normal Mood/Affect Hospital Course Was the Problem List Reviewed?: Yes Hospital course: Pt had a brief hospital course, she was admitted with severe nausea and vomiting maintain on IV fluids, elevated lactic acid due to dehydration. She did have A-FIB with RVR cardiology was consulted, Pt converted then Pt was able to be discharged in improved condition with no significant dramatic changes to her medication. Discussion & Recommendations Discharge Planning: <30 minutes discharge planning Supervisory-Addendum Brief Verification & Attestation Participated in pt care: history, MDM, physical Personally performed: exam, history, MDM, supervision of care Care discussed with: Medical Student Procedures: n/a Results interpretation: Verified all documentation Verification and Attestation of Medical Student E/M Service A medical student performed and documented this service in my presence. I reviewed and verified all information documented by the medical student and made modifications to such information, when appropriate. I personally performed the physical exam and medical decision making. Kaya Meier, Jul 18, 2019,20:21 Problem Qualifiers (1) Vomiting: Vomiting type: unspecified Vomiting Intractability: non-intractable Nausea presence: with nausea Qualified Codes: R11.2 - Nausea with vomiting, unspecified VIRGIL SYED MED STUD Jul 18, 2019 10:38 KAYA WILDE DO Jul 18, 2019 20:21 POS
== END 2019-07-18 11:21 | disposition home or self-care (01) | DRG 309 ==
LOC: EDUNIT# 12:53 → ER FS 12:54 → ICU 16:50 → CSD 07-17 08:48
PROVIDERS: ADMIT Internal Medicine; ATTEND Internal Medicine
DX: I48.0 Paroxysmal atrial fibrillation (principal); E87.2 Acidosis; K52.9 Noninfective gastroenteritis and colitis, unspecified; R54 Age-related physical debility; R07.89 Other chest pain; I25.10 Atherosclerotic heart disease of native coronary artery without angina pectoris; I12.9 Hypertensive chronic kidney disease with stage 1 through stage 4 chronic kidney disease, or unspecified chronic kidney disease; N18.3 Chronic kidney disease, stage 3 (moderate); E78.5 Hyperlipidemia, unspecified; E11.40 Type 2 diabetes mellitus with diabetic neuropathy, unspecified; R60.9 Edema, unspecified; I65.29 Occlusion and stenosis of unspecified carotid artery; E78.00 Pure hypercholesterolemia, unspecified; K21.9 Gastro-esophageal reflux disease without esophagitis; H25.9 Unspecified age-related cataract; M81.0 Age-related osteoporosis without current pathological fracture; M19.91 Primary osteoarthritis, unspecified site; E83.42 Hypomagnesemia; M54.40 Lumbago with sciatica, unspecified side; Z85.828 Personal history of other malignant neoplasm of skin; Z95.5 Presence of coronary angioplasty implant and graft; Z79.01 Long term (current) use of anticoagulants; Z79.84 Long term (current) use of oral hypoglycemic drugs; Z87.440 Personal history of urinary (tract) infections
CPT/HCPCS: 36415; 71045; 74177; 80048; 80053; 81000; 83605; 83690; 83735; 83880; 84100; 84484; 85007; 85025; 85027; 85610; 85730; 87040; 87081; 93005

== ENCOUNTER → 2019-08-07 | Outpatient (CLI) | payer MEDICARE ==
[~2019-08-07] MED LIST changes: +CYAN-41 PO; +GABA-486 PO; +GLIP10TA24 PO; -METO-370 PO; +METO50TA15 PO; +METO50TA7 PO; +POLY15DR14 OU; +POTA10TA10 PO; +RIVA20TA PO; +TRIM100T PO
--- NOTE | 2019-08-07 13:07 | Diagnostic Imaging Report ---
INDICATION: Hemoptysis and abdominal pressure. FINDINGS: The lung bases are clear. The bowel gas pattern is nonspecific. There are surgical clips in the right upper quadrant. There is no free air. There are post surgical changes in the lumbar spine. IMPRESSION: Nonspecific bowel gas pattern. Dictated by: Dictated on workstation # [id number]
[2019-08-07 13:11] LABS: BASOPHILS % (AUTO) 1 % (0-10); EOSINOPHILS % (AUTO) 2 % (0-10); HEMATOCRIT 41 % (35-52); HEMOGLOBIN 12.9 G/DL (11.5-16.0); LYMPHOCYTES # (AUTO) 1.9 X 10^3 (1.0-4.0); LYMPHOCYTES % (AUTO) 27 % (12-44); MEAN CORPUSCULAR HEMOGLOBIN 28 PG (25-34); MEAN CORPUSCULAR HGB CONC 32 G/DL (32-36); MEAN CORPUSCULAR VOLUME 90 FL (80-99); MEAN PLATELET VOLUME 10.6 FL (7.4-10.4); MONOCYTES # (AUTO) 0.6 X 10^3 (0.0-1.0); MONOCYTES % (AUTO) 8 % (0-12); NEUTROPHILS # (AUTO) 4.4 X 10^3 (1.8-7.8); NEUTROPHILS % (AUTO) 62 % (42-75); PLATELET COUNT 221 10^3/uL (130-400); RED CELL DISTRIBUTION WIDTH 12.6 % (10.0-14.5); WHITE BLOOD COUNT 7.1 10^3/uL (4.3-11.0)
[2019-08-07 13:12] LABS: EOSINOPHILS # (AUTO) 0.2 10^3/uL (0.0-0.3)
[2019-08-07 13:36] LABS: POTASSIUM 4.8 MMOL/L (3.6-5.0)
[2019-08-07 13:37] LABS: ALBUMIN 4.1 GM/DL (3.2-4.5); BILIRUBIN,TOTAL 0.5 MG/DL (0.1-1.0); CALCIUM 9.8 MG/DL (8.5-10.1); CREATININE SERUM 1.42 MG/DL (0.60-1.30); TOTAL PROTEIN 6.8 GM/DL (6.4-8.2)
== END ==
LOC: LAB FS 12:35
PROVIDERS: ATTEND Family Medicine
DX: K92.0 Hematemesis (principal)
CPT/HCPCS: 36415; 74018; 80053; 85025

== ENCOUNTER → 2019-08-07 | Outpatient (CLI) | payer MEDICARE ==
[~2019-08-07] MED LIST changes: +METO-370 PO; -METO50TA7 PO
== END ==
LOC: RAD FS 12:32
PROVIDERS: ATTEND Family Medicine
DX: K92.0 Hematemesis (principal)

== ENCOUNTER → 2019-10-03 | Outpatient (CLI) | payer MEDICARE ==
[~2019-10-03] MED LIST changes: -METO-370 PO; +METO50TA7 PO
[2019-10-03 10:48] LABS: POTASSIUM 4.4 MMOL/L (3.6-5.0)
[2019-10-03 10:49] LABS: ALBUMIN 4.2 GM/DL (3.2-4.5); BILIRUBIN,TOTAL 0.5 MG/DL (0.1-1.0); CREATININE SERUM 1.62 MG/DL (0.60-1.30); TOTAL PROTEIN 6.9 GM/DL (6.4-8.2)
[2019-10-03 14:52] LABS: CHOLESTEROL 123 MG/DL (< 200); HDL CHOLESTEROL 53 MG/DL (40-60); TRIGLYCERIDES 107 MG/DL (<150); VLDL CHOLESTEROL 21 MG/DL (5-40)
== END ==
LOC: LAB FS 08:45
PROVIDERS: ATTEND Family Medicine
DX: E53.8 Deficiency of other specified B group vitamins (principal); E11.9 Type 2 diabetes mellitus without complications
CPT/HCPCS: 36415; 80053; 80061; 82607; 83036

== ENCOUNTER → 2020-01-02 | Outpatient (CLI) | payer MEDICARE ==
[~2020-01-02] MED LIST changes: +ACHD5005 PO; -HYDR-3812 PO
[2020-01-02 11:14] LABS: ALBUMIN 4.2 GM/DL (3.2-4.5); BILIRUBIN,TOTAL 0.5 MG/DL (0.1-1.0); CALCIUM 9.4 MG/DL (8.5-10.1); CREATININE SERUM 1.81 MG/DL (0.60-1.30); POTASSIUM 4.6 MMOL/L (3.6-5.0); TOTAL PROTEIN 6.8 GM/DL (6.4-8.2)
== END ==
LOC: LAB FS 10:26
PROVIDERS: ATTEND Family Medicine
DX: E78.5 Hyperlipidemia, unspecified (principal); E11.9 Type 2 diabetes mellitus without complications
CPT/HCPCS: 36415; 80053; 80061; 83036

== ENCOUNTER → 2020-02-12 | Outpatient (CLI) | payer MEDICARE ==
--- NOTE | 2020-02-12 17:42 | Diagnostic Imaging Report ---
CLINICAL INDICATION: Patient has chronic low back pain with history of surgery in 2014. Patient has increasing pain and right hip pain. EXAM: MRI of the lumbar spine performed without IV contrast. Sequences include sagittal T2, sagittal T1, sagittal STIR, sagittal T2 fat-sat, and axial T2. COMPARISON: None. FINDINGS: There are postop changes to the lumbar spine with L2 through S1 posterior lumbar interbody fusion hardware. There is susceptibility hardware artifact seen adjacent to hardware slightly limiting evaluation. There is no acute lumbar spine fracture or dislocation. There is straightening of the thoracolumbar spine region centered at the L1-L2 region. There is no significant paraspinal soft tissue abnormality. The visualized portions of the distal thoracic spinal cord, conus medullaris, and cauda equina nerve roots are unremarkable. The conus medullaris tip is seen at the L1-L2 intervertebral level. T12-L1: There is a diffuse disc bulge and mild loss of disc space height. There is vgex-xo-fnefxuiu bilateral facet arthropathy. There is mild central canal narrowing. There is no significant neural foramen narrowing. L1-L2: There is a diffuse disc bulge with bqctufvf-mc-okadwv loss of disc space height. There is mild bilateral facet arthropathy. There is dtiz-bm-cesikxyc central canal stenosis and no significant neural foramen narrowing. Hypertrophic anterior disc spurs are seen. L2-L3: There is mild bilateral facet arthropathy. There is mild central canal narrowing and no significant neural foramen narrowing. L3-L4: There is moderate bilateral facet arthropathy. There is no significant central canal narrowing. There is limited visualization of the neural foramen regions due to distortion from susceptibility hardware artifact. There is some degree of bilateral neural foramen narrowing with the right side appearing to be more so than the left. L4-L5: There are vertebral spurs extending into the left foraminal region and bilateral facet arthropathy. There is some degree of left neural foramen narrowing which is partially obscured by susceptibility hardware artifact. There is no significant right neural foramen narrowing. There is no significant central canal narrowing. L5-S1: There is diffuse disc bulge with prominent posterior disc herniation component. There is concern for possible encroachment upon the non-exited bilateral S1 nerve roots. There is moderate loss of disc space height. There is moderate bilateral facet arthropathy/hypertrophy. There appears to be at least kqrp-fd-twdkmcpq right neural foramen narrowing and moderate to severe left neural foramen narrowing. There is no significant central canal stenosis. IMPRESSION: 1: There are postop changes to the lumbar spine with L2 through S1 posterior lumbar interbody fusion. There is no paraspinal fluid collection. Susceptibility hardware artifact limits evaluation of the neural foramina regions. 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 3: There is L1-L2 diffuse disc bulge with disc space loss with associated devd-vo-vrwqpotf central canal stenosis. 4: There is L5-S1 diffuse disc bulge with superimposed posterior disc herniation with concern for tiuendce-co-kojfrq left neural foramen narrowing and at least hlnm-wv-ctwjokfy right neural foramen narrowing. There is concern for encroachment upon the non-exited bilateral S1 nerve roots. Dictated by: Dictated on workstation # [id number]
== END ==
LOC: RAD 13:42
PROVIDERS: ATTEND Orthopaedic Surgery
DX: M47.817 Spondylosis without myelopathy or radiculopathy, lumbosacral region (principal); M51.26 Other intervertebral disc displacement, lumbar region
CPT/HCPCS: 72148

== ENCOUNTER → 2020-04-05 | Outpatient (CLI) | payer MEDICARE ==
[2020-04-05 10:01] LABS: CALCIUM 9.7 MG/DL (8.5-10.1); CREATININE SERUM 1.9 MG/DL (0.60-1.30); POTASSIUM 4.4 MMOL/L (3.6-5.0)
[2020-04-05 10:02] LABS: ALBUMIN 3.7 GM/DL (3.2-4.5); BILIRUBIN,TOTAL 0.6 MG/DL (0.1-1.0); TOTAL PROTEIN 6.3 GM/DL (6.4-8.2)
== END ==
LOC: LAB FS 08:42
PROVIDERS: ATTEND Family Medicine
DX: E78.5 Hyperlipidemia, unspecified (principal); E11.9 Type 2 diabetes mellitus without complications; I25.10 Atherosclerotic heart disease of native coronary artery without angina pectoris
CPT/HCPCS: 36415; 80053; 80061; 83036

== ENCOUNTER → 2020-05-01 | Outpatient (CLI) | payer MEDICARE ==
[2020-05-01 11:52] LABS: CLARITY,URINE SLT CLOUDY; COLOR,URINE YELLOW; GLUCOSE, URINE (UA) NEGATIVE (NEGATIVE); KETONES,URINE NEGATIVE (NEGATIVE); PROTEIN,URINE 2+ (NEGATIVE)
[2020-05-01 11:53] LABS: BACTERIA,URINE MODERATE /HPF; BILIRUBIN,URINE NEGATIVE (NEGATIVE); LEUKOCYTE ESTERASE ,URINE 1+ (NEGATIVE); NITRITE,URINE POSITIVE (NEGATIVE); RBC,URINE 0-2 /HPF
[2020-05-01 12:27] LABS: BILIRUBIN,TOTAL 0.6 MG/DL (0.1-1.0); CALCIUM 9.5 MG/DL (8.5-10.1); CREATININE SERUM 1.75 MG/DL (0.60-1.30); POTASSIUM 4.9 MMOL/L (3.6-5.0); TOTAL PROTEIN 6.7 GM/DL (6.4-8.2)
[2020-05-01 12:37] LABS: HEMATOCRIT 43 % (35-52); MEAN CORPUSCULAR HEMOGLOBIN 30 PG (25-34); MEAN CORPUSCULAR VOLUME 91 FL (80-99); WHITE BLOOD COUNT 6.6 10^3/uL (4.3-11.0)
[2020-05-01 12:38] LABS: BASOPHILS # (AUTO) 0.1 10^3/uL (0.0-0.1); BASOPHILS % (AUTO) 1 % (0-10); EOSINOPHILS # (AUTO) 0.1 10^3/uL (0.0-0.3); EOSINOPHILS % (AUTO) 1 % (0-10); LYMPHOCYTES # (AUTO) 1.9 X 10^3 (1.0-4.0); LYMPHOCYTES % (AUTO) 29 % (12-44); MEAN CORPUSCULAR HGB CONC 33 G/DL (32-36); MEAN PLATELET VOLUME 10.4 FL (7.4-10.4); MONOCYTES # (AUTO) 0.8 X 10^3 (0.0-1.0); MONOCYTES % (AUTO) 11 % (0-12); NEUTROPHILS # (AUTO) 3.8 X 10^3 (1.8-7.8); NEUTROPHILS % (AUTO) 57 % (42-75); PLATELET COUNT 226 10^3/uL (130-400); RED CELL DISTRIBUTION WIDTH 13.4 % (10.0-14.5)
== END ==
LOC: LAB FS 11:12
PROVIDERS: ATTEND Family Medicine
DX: R63.4 Abnormal weight loss (principal)
CPT/HCPCS: 36415; 80053; 81000; 84443; 85025; 87077; 87088

== ENCOUNTER → 2020-06-26 | Outpatient (CLI) | payer MEDICARE ==
[~2020-06-26] MED LIST changes: -PANT40TA3 PO; +PANT40TA52 PO
[2020-06-26 17:36] LABS: BILIRUBIN,URINE NEGATIVE (NEGATIVE); CLARITY,URINE CLOUDY; COLOR,URINE YELLOW; GLUCOSE, URINE (UA) 1+ (NEGATIVE); KETONES,URINE NEGATIVE (NEGATIVE); LEUKOCYTE ESTERASE ,URINE 1+ (NEGATIVE); NITRITE,URINE NEGATIVE (NEGATIVE); PROTEIN,URINE 2+ (NEGATIVE); WBC,URINE 50-100 /HPF
[2020-06-26 17:37] LABS: BACTERIA,URINE MODERATE /HPF; SQUAMOUS EPITHELIAL CELL,UR 25-50 /HPF
== END ==
LOC: LAB FS 15:04
PROVIDERS: ATTEND Family Medicine
DX: R11.0 Nausea (principal); R10.9 Unspecified abdominal pain; R82.90 Unspecified abnormal findings in urine
CPT/HCPCS: 81000; 87088

== ENCOUNTER → 2020-07-08 | Outpatient (CLI) | payer MEDICARE ==
[2020-07-08 09:38] LABS: CREATININE SERUM 1.38 MG/DL (0.60-1.30); POTASSIUM 4.5 MMOL/L (3.6-5.0)
[2020-07-08 09:39] LABS: CALCIUM 9.5 MG/DL (8.5-10.1)
== END ==
LOC: LAB FS 09:03
PROVIDERS: ATTEND Family Medicine
DX: E11.9 Type 2 diabetes mellitus without complications (principal)
CPT/HCPCS: 36415; 80048; 83036

== ENCOUNTER → 2020-07-16 | Outpatient (CLI) | payer MEDICARE ==
[2020-07-16 16:58] LABS: BILIRUBIN,URINE NEGATIVE (NEGATIVE); CLARITY,URINE CLEAR; COLOR,URINE YELLOW; GLUCOSE, URINE (UA) TRACE (NEGATIVE); KETONES,URINE NEGATIVE (NEGATIVE); LEUKOCYTE ESTERASE ,URINE 1+ (NEGATIVE); NITRITE,URINE NEGATIVE (NEGATIVE); PROTEIN,URINE 1+ (NEGATIVE)
[2020-07-16 16:59] LABS: BACTERIA,URINE FEW /HPF
== END ==
LOC: LAB FS 15:58
PROVIDERS: ATTEND Family Medicine
DX: R30.9 Painful micturition, unspecified (principal)
CPT/HCPCS: 81000; 87088

== ENCOUNTER 2020-08-13 15:44 | Outpatient (RCR) | payer MEDICARE ==
[~2020-08-13] VITALS: Ht 149 cm; Wt 70.9 kg
== END 2020-08-13 15:45 | disposition home or self-care (01) ==
LOC: PREOP 15:44
PROVIDERS: ATTEND Surgery
DX: Z01.812 Encounter for preprocedural laboratory examination (principal); R10.13 Epigastric pain; Z86.010 Personal history of colon polyps; Z20.828 Contact with and (suspected) exposure to other viral communicable diseases

== ENCOUNTER → 2020-08-13 | Outpatient (CLI) | payer MEDICARE ==
[~2020-08-13] MED LIST changes: +AMIO200T6 PO; +AMLO-250 PO; -CYAN500T62 PO; +CYAN500T64 PO; +METO-333 PO
--- NOTE | 2020-08-13 11:37 | Diagnostic Imaging Report ---
Bilateral ribs at 10:54. Indication: Fell 5 views were obtained. There is no evidence for a displaced rib fracture. No other acute bony abnormality is identified. There is no sign of an injury to the underlying lungs. Specifically there is no evidence for a pneumothorax. Incidental note is made of a 1.4 cm partially calcified nodule in the right midlung. In retrospect this was present on the prior exam of 07/18/2019 and has not changed significantly. Impression: There is no evidence for a displaced rib fracture and there is no sign of an injury to the underlying lungs. Dictated by: Dictated on workstation # [id number]
== END ==
LOC: RAD FS 10:48
PROVIDERS: ATTEND Family Medicine
DX: Z03.89 Encounter for observation for other suspected diseases and conditions ruled out (principal); W19.XXXA Unspecified fall, initial encounter
CPT/HCPCS: 71110

== ENCOUNTER → 2020-08-16 | Outpatient (CLI) | payer MEDICARE | LOC: LAB FS 10:20 | PROVIDERS: ATTEND Surgery | DX: Z01.812 Encounter for preprocedural laboratory examination (principal); Z20.828 Contact with and (suspected) exposure to other viral communicable diseases | CPT/HCPCS: 87635 ==

== ENCOUNTER 2020-08-20 09:46 | Day surgery (SDC) | payer MEDICARE ==
[~2020-08-20] VITALS: Ht 149 cm; Wt 70.9 kg
[2020-08-20 09:49] VITALS: BP 106/58
[2020-08-20] MEDS ORDERED: LACTATED RINGERS 1,000 ML IV ONE (09:51)
[2020-08-20] MEDS ORDERED: HURRICAINE EXT TUBE (BENZOCAINE) ONE (09:53)
[2020-08-20] MEDS ORDERED: LACTATED RINGERS 1,000 ML IV STA (09:54)
[2020-08-20] MEDS ORDERED: HURRICAINE EXT TUBE (BENZOCAINE) XX PRN (10:00)
[2020-08-20] MEDS ORDERED: PROPOFOL INJECTION 50 ML IV ONE (10:01)
[2020-08-20] MEDS ORDERED: MIDAZOLAM 2 MG/2 ML (VERSED) VIAL ONE (10:01)
--- NOTE | 2020-08-20 10:04 | Progress Note-Pre Operative ---
Pre-Operative Progress Note H&P Reviewed The H&P was reviewed, patient examined and no changes noted. Date Seen by Provider: Aug 20, 2020 Time Seen by Provider: 10:04 Date H&P Reviewed: Aug 20, 2020 Time H&P Reviewed: 10:04 Pre-Operative Diagnosis: epigastric abd pain, history of polyps TERE CLARK DO Aug 20, 2020 10:04
[2020-08-20 10:40] VITALS: BP 89/51
[2020-08-20 10:45] VITALS: BP 105/56
--- NOTE | 2020-08-20 10:45 | Progress Note-Post Operative ---
Post-Operative Progess Note Surgeon (s)/[employer] Administrator (s) Surgeon TERE CLARK DO [employer] Administrator: na Pre-Operative Diagnosis epigastric abd pain, history of polyps, wt loss Post-Operative Diagnosis relux esophagitis, diverticulosis Procedure & Operative Findings Date of Procedure 08/20/20 Procedure Performed/Findings egd c biopsies, colonoscopy Anesthesia Type per grease worker Estimated Blood Loss Estimated blood loss (mL): none Specimens/Packing Specimens Removed antrum, ge TERE CLARK DO Aug 20, 2020 10:45
--- NOTE | 2020-08-20 10:46 | Discharge Inst-Simple/Standard ---
Discharge Inst-Standard Patient Instructions/Follow Up Plan of Care/Instructions/FU: 2 weeks Duy Activity as Tolerated: Yes Discharge Diet: Regular Diet TERE CLARK DO Aug 20, 2020 10:46
[2020-08-20 11:22] VITALS: BP 108/62
--- NOTE | 2020-08-20 13:36 | Anesthesia-General Post-Op ---
MAC Patient Condition Mental Status/LOC: Same as Preop Cardiovascular: Satisfactory Nausea/Vomiting: Absent Respiratory: Satisfactory Pain: Controlled Complications: Absent Post Op Complications Complications None Follow Up Care/Instructions Patient Instructions None needed. Anesthesiology Discharge Order Discharge Order Patient is doing well, no complaints, stable vital signs, no apparent adverse anesthesia problems. No complications reported per nursing. CASANDRA GRIMES CRNA Aug 20, 2020 13:36
--- NOTE | 2020-08-20 14:00 | OPERATIVE REPORT ---
DATE OF SERVICE: 08/20/2020 PREOPERATIVE DIAGNOSES: Epigastric abdominal pain, history of polyps. Weight loss. POSTOPERATIVE DIAGNOSES: Reflux esophagitis, diverticulosis. PROCEDURE: EGD with biopsies, colonoscopy. SURGEON: Tere Gordillo DO ANESTHESIA: Per COPING MACHINE OPERATOR. ESTIMATED BLOOD LOSS: None. COMPLICATIONS: None. SPECIMENS: Antrum, GE junction. INDICATIONS: The patient is an 84-year-old female with epigastric abdominal pain, history of colon polyps and weight loss. She understands risks and benefits of procedures and wished to proceed with procedure. Consent was signed in the chart. DESCRIPTION OF PROCEDURE: The patient was taken to the endoscopy suite, placed in left lateral recumbent position. Timeout was performed. Scope was inserted in mouth, down the esophagus, stomach and into the duodenum without difficulty. There were no polyps, masses or ulcerations within the duodenum. Scope was slowly retracted back into the stomach where it was further insufflated. No polyps, masses or ulcerations. Biopsy of the antrum was obtained. Scope was retroflexed noting no other pathology. Scope was returned to its normal position, slowly withdrawn to distal esophagus. Biopsy of the GE junction was obtained. No polyps, masses or ulcerations. Some erythematous changes consistent with reflux esophagitis. Scope was then slowly retracted back until completely removed. Digital rectal exam was performed noting hemorrhoidal disease. No palpable polyps, masses or ulcerations. Scope was inserted in the rectum, advanced all the way to cecum with minimal difficulty. Prep was adequate. Scope was then slowly retracted back. There were no polyps, masses or ulcerations within the cecum, ascending, transverse, descending and sigmoid colon. Throughout the colon, minimal amount of diverticulosis is present. Once in the rectum, scope was retroflexed noting no other pathology. Scope was returned to its normal position, slowly withdrawn until completely removed. The patient tolerated procedure well without any complications. She was taken to recovery room in stable condition. RECOMMENDATIONS: The patient will continue on current medications. We will follow up on biopsies in approximately 2 weeks. Further recommendations pending. Job ID: [id number] DocumentID: [id number] Dictated Date: 08/20/2020 10:49:01 Returned Case Inspector Date: 08/20/2020 13:59:09 Dictated By: TERE GORDILLO DO
== END 2020-08-20 11:30 | disposition home or self-care (01) ==
LOC: ENDO 09:46
PROVIDERS: ATTEND Surgery
DX: K21.00 Gastro-esophageal reflux disease with esophagitis, without bleeding (principal); K57.30 Diverticulosis of large intestine without perforation or abscess without bleeding; R63.4 Abnormal weight loss; I48.91 Unspecified atrial fibrillation; I12.9 Hypertensive chronic kidney disease with stage 1 through stage 4 chronic kidney disease, or unspecified chronic kidney disease; N18.30 Chronic kidney disease, stage 3 unspecified; E11.22 Type 2 diabetes mellitus with diabetic chronic kidney disease; E78.2 Mixed hyperlipidemia; I48.0 Paroxysmal atrial fibrillation; I25.10 Atherosclerotic heart disease of native coronary artery without angina pectoris; M19.90 Unspecified osteoarthritis, unspecified site; E66.9 Obesity, unspecified; Z68.31 Body mass index [BMI] 31.0-31.9, adult; Z79.01 Long term (current) use of anticoagulants; Z88.2 Allergy status to sulfonamides; Z88.5 Allergy status to narcotic agent; Z91.041 Radiographic dye allergy status; Z88.8 Allergy status to other drugs, medicaments and biological substances; Z86.010 Personal history of colon polyps; Z91.048 Other nonmedicinal substance allergy status; Z90.710 Acquired absence of both cervix and uterus
CPT/HCPCS: 82962; 88305

== ENCOUNTER → 2020-09-19 | Outpatient (CLI) | payer MEDICARE ==
[~2020-09-19] MED LIST changes: -CYAN500T64 PO; +CYAN500T8 PO
[2020-09-19 09:44] LABS: CREATININE SERUM 1.68 MG/DL (0.60-1.30); POTASSIUM 4.2 MMOL/L (3.6-5.0)
[2020-09-19 09:45] LABS: CALCIUM 9.3 MG/DL (8.5-10.1)
[2020-09-19 14:00] LABS: BILIRUBIN,URINE NEGATIVE (NEGATIVE); CLARITY,URINE TURBID; COLOR,URINE YELLOW; GLUCOSE, URINE (UA) NEGATIVE (NEGATIVE); KETONES,URINE TRACE (NEGATIVE); NITRITE,URINE POSITIVE (NEGATIVE); PH,URINE 5.5 (5-9); PROTEIN,URINE 2+ (NEGATIVE)
[2020-09-19 14:01] LABS: BACTERIA,URINE LARGE /HPF; LEUKOCYTE ESTERASE ,URINE 2+ (NEGATIVE); WBC,URINE >100 /HPF
== END ==
LOC: LAB FS 08:52
PROVIDERS: ATTEND Urology
DX: N39.0 Urinary tract infection, site not specified (principal)
CPT/HCPCS: 36415; 80048; 81000; 87077; 87088; 87186

== ENCOUNTER → 2020-09-30 | Outpatient (CLI) | payer MEDICARE | LOC: LAB FS 10:05 | PROVIDERS: ATTEND Orthopaedic Surgery | DX: Z01.812 Encounter for preprocedural laboratory examination (principal); Z20.822 Contact with and (suspected) exposure to COVID-19 | CPT/HCPCS: 87635 ==

== ENCOUNTER → 2020-10-08 | Outpatient (CLI) | payer MEDICARE ==
[2020-10-08 10:06] LABS: BILIRUBIN,TOTAL 0.9 MG/DL (0.1-1.0); CALCIUM 9.5 MG/DL (8.5-10.1); CREATININE SERUM 1.37 MG/DL (0.60-1.30); POTASSIUM 3.2 MMOL/L (3.6-5.0); TOTAL PROTEIN 6.2 GM/DL (6.4-8.2)
[2020-10-08 10:07] LABS: ALBUMIN 3.3 GM/DL (3.2-4.5)
[2020-10-08 10:07] LABS: CLARITY,URINE CLOUDY; COLOR,URINE YELLOW
[2020-10-08 10:08] LABS: GLUCOSE, URINE (UA) NEGATIVE (NEGATIVE); KETONES,URINE TRACE (NEGATIVE); NITRITE,URINE POSITIVE (NEGATIVE); PROTEIN,URINE 2+ (NEGATIVE)
[2020-10-08 10:17] LABS: BACTERIA,URINE MODERATE /HPF; BILIRUBIN,URINE 1+ (NEGATIVE); LEUKOCYTE ESTERASE ,URINE 3+ (NEGATIVE); RBC,URINE 0-2 /HPF; WBC,URINE TNTC /HPF
== END ==
LOC: LAB FS 09:10
PROVIDERS: ATTEND Family Medicine
DX: N39.0 Urinary tract infection, site not specified (principal); I10 Essential (primary) hypertension; R53.83 Other fatigue
CPT/HCPCS: 36415; 80053; 80061; 81000; 84443; 87088

== ENCOUNTER → 2020-10-21 | Outpatient (CLI) | payer MEDICARE ==
--- NOTE | 2020-10-21 13:22 | Diagnostic Imaging Report ---
PROCEDURE: US Abdomen, limited. TECHNIQUE: Multiple realtime grayscale images were obtained over the abdomen in various projections. INDICATION: Elevated liver function test. FINDINGS: Liver is normal in size at 15.4 cm. No discrete liver mass is detected. Portal vein is patent and shows normal direction of flow. Gallbladder is surgically absent. There is no biliary ductal dilatation. Pancreas was obscured by bowel gas. Aorta is nonaneurysmal. IVC is patent. Right kidney does demonstrate cortical thinning but no calculi or hydronephrosis is identified. There is no ascites. IMPRESSION: 1. No discrete liver mass is detected. 2. Status post cholecystectomy. No biliary ductal dilatation is identified. 3. Right renal cortical thinning. No hydronephrosis or calculi are detected. Dictated by: Dictated on workstation # [id number]
== END ==
LOC: RAD FS 10:26
PROVIDERS: ATTEND Family Medicine
DX: R74.01 Elevation of levels of liver transaminase levels (principal); N28.89 Other specified disorders of kidney and ureter; Z90.49 Acquired absence of other specified parts of digestive tract
CPT/HCPCS: 76705

== ENCOUNTER → 2020-11-12 | Outpatient (CLI) | payer MEDICARE ==
--- NOTE | 2020-11-12 13:28 | Diagnostic Imaging Report ---
INDICATION: Postmenopausal state, screening for osteoporosis. COMPARISON: None available. FINDINGS: AP Spine L1-L4: [BMD (g/cm2): NA] [T-Score: NA] [Z-Score: NA] [BMD Previous: NA] [BMD % Change: NA] LT Hip Neck: [BMD (g/cm2): 0.637] [T-Score: -2.9] [Z-Score: -0.5] LT Hip Total: [BMD (g/cm2):.662] [T-Score:-2.7] [Z-Score: -0.4] [BMD Previous: NA] [BMD % Change: NA] RT Hip Neck: [BMD (g/cm2):0.718] [T-Score:-2.3] [Z-Score:0.1] RT Hip Total: [BMD (g/cm2):0.722] [T-score:-2.3] [Z-Score:0.0] [BMD Previous:NA] [BMD % Change:NA] *Indicates significant change from prior examination based on 95% confidence level. World Health Organization criteria for BMD interpretation classify patients as Normal (T-score at or above -1.0), Osteopenic (T-score between -1.0 and -2.5) or Osteoporotic (T-score at or below -2.5). LIMITATIONS AND MODIFICATION: The lumbar spine was not evaluated secondary to postsurgical changes. FRACTURE RISK (FRAX SCORE): The ten year probability of (%): Major Osteoporotic Fracture: [31.1] Hip Fracture: [11.4] IMPRESSION: 1. Osteoporosis. 2. Baseline examination. 3. See below National Osteoporosis Foundation guidelines on when to potentially initiate pharmacologic therapy. Based on the National Osteoporosis Foundation Guidelines, pharmacologic treatment should be initiated in any of the following, unless clinical conditions suggest otherwise: * Any patient with prior fragility fracture of the hip or vertebrae. A spine fracture indicates 5X risk for subsequent spine fracture and 2X risk for subsequent hip fracture. * Osteoporosis (T-score <-2.5). * Postmenopausal women and men age 50 and older with low bone mass/osteopenia (T-score between -1.0 and -2.5) by DXA and 10-year major osteoporotic fracture greater than 20% or a 10-year probability of hip fracture greater than 3%. These fracture risks are supplied above in the FRAX score, if applicable. * Clinician judgement and/or patient preferences may indicate treatment for people with 10-year fracture probabilities above or below these levels. Dictated by: Dictated on workstation # [id number]
== END ==
LOC: RAD 12:28
PROVIDERS: ATTEND Family Medicine
DX: M81.0 Age-related osteoporosis without current pathological fracture (principal); Z78.0 Asymptomatic menopausal state
CPT/HCPCS: 77080

== ENCOUNTER → 2020-12-20 | Outpatient (CLI) | payer MEDICARE ==
[2020-12-20 11:22] LABS: COLOR,URINE ORANGE
[2020-12-20 11:23] LABS: CLARITY,URINE CLOUDY; GLUCOSE, URINE (UA) TRACE (NEGATIVE); KETONES,URINE TRACE (NEGATIVE); NITRITE,URINE POSITIVE (NEGATIVE); PROTEIN,URINE 2+ (NEGATIVE)
[2020-12-20 11:24] LABS: BACTERIA,URINE MODERATE /HPF; BILIRUBIN,URINE 2+ (NEGATIVE); HYALINE CASTS, URINE 25-50 /LPF; LEUKOCYTE ESTERASE ,URINE TRACE (NEGATIVE); WBC,URINE 50-100 /HPF
== END ==
LOC: LAB FS 09:38
PROVIDERS: ATTEND Family Medicine
DX: Z87.440 Personal history of urinary (tract) infections (principal)
CPT/HCPCS: 81000; 87077; 87088; 87186